=== PATIENT | female | born 2000 | race Caucasian/White ===

== ENCOUNTER 2025-08-22 14:01 | Emergency (ER) | payer BC, SELFPAY ==
--- OUTSIDE RECORDS SUMMARY | 2023-03-12 15:28 | XMS_ITS | Encounter Summary ---
Author Organization [facility] Address [address] [place] [address] Care Team Providers Care Die Filer Name Role Phone Dawson Natarajan MD Primary Care Provider + [phone] Encounter Details Date Type Department Care Team (Late st Contact Info) Description 03/12/2023 3:28 PM EDT Hospital Encounter [facility] [address] [place] [address] Codie Loredo PA [address] [place], [place] [id number] Social History Tobacco Use Types Packs/Day Years Used Date Smoking Tobacco: Never Smokeless Tobacco: Never Alcohol Use Standard Drinks/Week Comments Not Currently 0 (1 standard drink = 0.6 oz pur e alcohol) [facility] Utilities Answer Date Recorded In the past 12 months has [employer], gas, oil, or water [employer] threatened to shut off services in your home? No 01/07/2025 Social Connection and Isolat ion Panel [NHANES] Answer Date Recorded In a typical week, how many times do you talk on the phone with family, friends, or neighbors? More than three times a week 01/07/2025 How often do you get togethe r with friends or relatives? More than three times a week 01/07/2025 How often do you attend chur ch or gnosticist services? Never 01/07/2025 Do you belong to any clubs o r organizations such as religion groups, unions, fraternal or athletic groups, or school groups? No 01/07/2025 How often do you attend meet ings of the clubs or organizations you belong to? Never 01/07/2025 Are you , , di vorced, , never , or living with a partner? Never 01/07/2025 AUDIT-C Answer Date Recorded Q1: How often do you have a drink containing alc ohol? Monthly or less 01/06/2025 Q2: How many drinks containi ng alcohol do you have on a typical day when you are drinking? 1 or 2 01/06/2025 Q3: How often do you have si x or more drinks on one occasion? Never 01/06/2025 Overall Financial Resource Strain (CARDIA) Answe r Date Recorded How hard is it for you to pa y for the very basics like food, housing, medical care, and heating? Not hard at all 01/07/2025 Hunger Vital Sign Answer Date Recorded Within the past 12 months, y ou worried that your food would run out before you got the money to buy more. Never true 01/07/20 25 Within the past 12 months, t he food you bought just didn't last and you didn't have money to get more. Never true 01/07/2025 PRAPARE - Transportation Answer Date Re corded In the past 12 months, has l ack of transportation kept you from medical appointments or from getting medications? No 12/27 In the past 12 months, has l ack of transportation kept you from meetings, work, or from getting things needed for daily living? No 01/07/2025 Housing Stability Vital Sign Answer Patel e Recorded In the last 12 months, was t here a time when you were not able to pay the mortgage or rent on time? No 01/07/2025 In the past 12 months, how m any times have you moved where you were living? 0 01/07/2025 At any time in the past 12 m [facility], were you homeless or living in a halfway (including now)? No 01/07/2025 Comments No Sex and Gender Information Value Date Recorded Sex Assigned at Female 05/12/2023 3:50 PM EDT Legal Sex Female 3:02 PM EDT Gender Identity Female 05/12/2023 3:50 PM EDT Sexual Orientation Choose not to disclose 2022 9:40 AM EDT COVID-19 Exposure Response Date Recorded In the last 10 days, have kristen miller been in contact with someone who was confirmed or suspected to have Coronavirus/COVID-19? Unable to assess 05/12/2023 3:48 PM EDT documented as of this encounter Functional Status * Audit-C Score Answer Date of Assessment Author 1 01/06/2025 1:25 AM Giulia Meyer RN * Question Answer Date of Assessment Author Q1: How often do you have a drink containing alcohol? Monthly or less 01/06/2025 1:25 AM Giulia Meyer RN Q2: How many drinks containing alcohol do you have on a typical day when you are drinking? 1 or 2 01/06/2025 1:25 AM Judith Meyer RN Q3: How often do you have six or more drinks on one occasion? Never 01/06/2025 1:25 AM Giulia Meyer RN documented as of this encounter Plan of Treatment Not on file documented as of this encounter Procedures Procedure Name Priority Date/Time Associated Diagnosis Comments XR SHOULDER 2+ VIEWS-RIGHT STAT 03/12/2023 3:53 PM EDT Acute pain of right shoulder documented in this encounter Results * XR Shoulder 2+ views-Right (03/12/2023 3:53 PM EDT) Anatomical Region Laterality Modality Shoulder Right Computed Radiogr aphy 03/12/2023 3:56 PM EDT Impressions 03/12/2023 3:57 PM EDT 1. No fracture or dislocation. Narrative 03/12/2023 3:57 PM EDT XR SHOULDER 2+ VIEWS-RIGHT 03/12/2023 3:57 PM HISTORY: 22 yr old fell at work now right shoulder pain ? fx COMPARISON: None. TECHNIQUE: AP internal and external rotation and scapular Y radiographs of the right shoulder were obtained. FINDINGS: The skeletal structures are normally mineralized without an acute fracture or dislocation. The soft tissues are unremarkable. The visualized lung is clear. Procedure Note Donte Cordon MD - 03/12/2023 XR SHOULDER 2+ VIEWS-RIGHT 03/12/2023 3:57 PM HISTORY: 22 yr old fell at work now right shoulder pain ? fx COMPARISON: None. TECHNIQUE: AP internal and external rotation and scapular Y radiographsof the right shoulder were obtained. FINDINGS: The skeletal structures are normally mineralized without an acute fractureor dislocation. The soft tissues are unremarkable. The visualized lung isclear. IMPRESSION: 1. No fracture or dislocation. us Codie CABALLERO IMG DIAGNOSTIC IMAGING ORDERABLE S Final Result documented in this encounter Visit Diagnoses Not on filedocumented in this encounter Additional Health Concerns Infection Onset Date Last Indicated Resolved Time R/O Gastrointestinal Infection 04/11/2025 04/11/2025 04/11/2025 6:59 PM EDT R/O C. Difficile 04/11/2025 04/11/2025 04/12/2025 10:28 PM EDT documented as of this encounter Care Teams Die Filer Relationship Specialty Start [place] [address] [place] [id number] PCP - General Internal Medicine 04/12/22 documented as of this encounter
--- OUTSIDE RECORDS SUMMARY | 2023-03-12 15:28 | XMS_ITS | Encounter Summary ---
Author Organization [facility] Address [address] [place] [address] Care Team Providers Care Online Communications Specialist Name Role Phone Dawson Natarajan MD Primary Care Provider + [phone] Encounter Details Date Type Department Care Team (Late st Contact Info) Description 03/12/2023 3:28 PM EDT Hospital Encounter [facility] [address] [place] [address] Codie Loredo PA [address] [place], [place] [phone] Social History Tobacco Use Types Packs/Day Years Used Date Smoking Tobacco: Never Smokeless Tobacco: Never Alcohol Use Standard Drinks/Week Comments Not Currently 0 (1 standard drink = 0.6 oz pur e alcohol) [facility] Utilities Answer Date Recorded In the past 12 months has [employer], gas, oil, or water [employer] threatened to shut off services in your [...] often do you attend chur ch or uatsdin services? Never 01/07/2025 Do you belong to any clubs o r organizations such as judaism groups, unions, fraternal or athletic groups, or [...] any time in the past 12 m [facility], were you homeless or living in a snf (including now)? No 01/07/2025 Comments No Sex [...] Name Priority Date/Time Associated Diagnosis Comments XR FOOT 3+ VIEWS-LEFT STAT 03/12/2023 3:52 PM EDT Left foot pain documented in this encounter Results * XR Foot 3+ views-Left (03/12/2023 3:52 PM EDT) Anatomical Region Laterality Modality Foot Left Computed Radiogr aphy 03/12/2023 3:55 PM EDT Impressions 03/12/2023 3:56 PM EDT 1. No acute fracture or dislocation of the left foot. Narrative 03/12/2023 3:56 PM EDT XR FOOT 3+ VIEWS-LEFT 03/12/2023 3:55 PM HISTORY: s/p fall now having left fot pain COMPARISON(S): None. TECHNIQUE: AP, lateral, and oblique radiographs of the left foot were obtained. FINDINGS: There is normal mineralization without acute fracture. The alignment is anatomic without subluxation or dislocation. No joint space narrowing, erosions or osteophytes are present. There is no appreciable soft tissue swelling, subcutaneous emphysema or radio-opaque foreign object. There is small plantar calcaneal spur. Procedure Note Donte Cordon MD - 03/12/2023 XR FOOT 3+ VIEWS-LEFT 03/12/2023 3:55 PM HISTORY: s/p fall now having left fot pain COMPARISON(S): None. TECHNIQUE: AP, lateral, and oblique radiographs of the left foot wereobtained. FINDINGS: There is normal mineralization without acute fracture. The alignment isanatomic without subluxation or dislocation. No joint space narrowing,erosions or osteophytes are present. There is no appreciable soft tissueswelling, subcutaneous emphysema or radio-opaque foreign object. There is small plantar calcaneal spur. IMPRESSION: 1. No acute fracture or dislocation of the left foot. us Codie CABALLERO IMG DIAGNOSTIC IMAGING ORDERABLE S Final Result documented in this encounter Visit Diagnoses Not on filedocumented in this encounter Additional Health Concerns Infection Onset Date Last Indicated Resolved Time R/O Gastrointestinal Infection 04/11/2025 04/11/2025 04/11/2025 6:59 PM EDT R/O C. Difficile 04/11/2025 04/11/2025 04/12/2025 10:28 PM EDT documented as of this encounter Care Teams Online Communications Specialist Relationship Specialty Start Date End Date Dawson Natarajan MD [address] [place] [id number] PCP - General Internal Medicine 04/12/22 documented as of this encounter
--- OUTSIDE RECORDS SUMMARY | 2023-03-12 15:28 | XMS_ITS | Encounter Summary ---
Author Organization [facility] Address [address] [place] [address] Care Team Providers Care Quality Compliance Coordinator Name Role Phone Dawson Natarajan MD Primary Care Provider + [phone] Encounter Details Date Type Department Care Team (Late st Contact Info) Description 03/12/2023 3:28 PM EDT Hospital Encounter [facility] [address] [place] [address] Codie Loredo PA [address] [place], [place] [phone] Social History Tobacco Use Types Packs/Day Years Used Date Smoking Tobacco: Never Smokeless Tobacco: Never Alcohol Use Standard Drinks/Week Comments Not Currently 0 (1 standard drink = 0.6 oz pur e alcohol) [facility] Utilities Answer Date Recorded In the past 12 months has [employer], gas, oil, or water [employer] threatened to shut off services in your [...] often do you attend chur ch or mandaeism services? Never 01/07/2025 Do you belong to any clubs o r organizations such as baptist groups, unions, fraternal or athletic groups, or [...] any time in the past 12 m [facility], were you homeless or living in a assisted (including now)? No 01/07/2025 Comments No Sex [...] Name Priority Date/Time Associated Diagnosis Comments XR ANKLE 3+ VIEWS-LEFT STAT 03/12/2023 3:52 PM EDT Injury of left ankle, initial encounter documented in this encounter Results * XR Ankle 3+ views-Left (03/12/2023 3:52 PM EDT) Anatomical Region Laterality Modality Ankle Left Computed Radiogr aphy 03/12/2023 3:56 PM EDT Impressions 03/12/2023 3:56 PM EDT 1. No acute fracture or dislocation of the left ankle. Narrative 03/12/2023 3:56 PM EDT XR ANKLE 3+ VIEWS-LEFT 03/12/2023 3:56 PM HISTORY: 22 yr old fell over onto chair twisted foot and ankle ? fx COMPARISON(S): None. TECHNIQUE: AP, lateral, and oblique radiographs of the left ankle were obtained. FINDINGS: There is normal mineralization without acute fracture. The base of the fifth metatarsal is intact. The alignment is anatomic without subluxation or dislocation. The medial and lateral clear spaces are symmetric. No joint space narrowing, erosions or osteophytes are present. There is no appreciable soft tissue swelling, subcutaneous emphysema or radio-opaque foreign object. Small calcaneal spur. Procedure Note Donte Cordon MD - 03/12/2023 XR ANKLE 3+ VIEWS-LEFT 03/12/2023 3:56 PM HISTORY: 22 yr old fell over onto chair twisted foot and ankle ? fx COMPARISON(S): None. TECHNIQUE: AP, lateral, and oblique radiographs of the left ankle wereobtained. FINDINGS: There is normal mineralization without acute fracture. The base of thefifth metatarsal is intact. The alignment is anatomic without subluxationor dislocation. The medial and lateral clear spaces are symmetric. Nojoint space narrowing, erosions or osteophytes are present. There is no appreciable soft tissue swelling,subcutaneous emphysema or radio-opaque foreign object. Small calcanealspur. IMPRESSION: 1. No acute fracture or dislocation of the left ankle. us Codie CABALLERO IMG DIAGNOSTIC IMAGING ORDERABLE S Final Result documented in this encounter Visit Diagnoses Not on filedocumented in this encounter Additional Health Concerns Infection Onset Date Last Indicated Resolved Time R/O Gastrointestinal Infection 04/11/2025 04/11/2025 04/11/2025 6:59 PM EDT R/O C. Difficile 04/11/2025 04/11/2025 04/12/2025 10:28 PM EDT documented as of this encounter Care Teams Quality Compliance Coordinator Relationship Specialty Start Date End Date Dawson Natarajan MD [address] [place] [address] PCP - General Internal Medicine 04/12/22 documented as of this encounter
--- OUTSIDE RECORDS SUMMARY | 2023-05-12 16:28 | XMS_ITS | Encounter Summary ---
Author Organization [facility] Address [address] [place] [address] Care Team Providers Care Dump Grader Name Role Phone Dawson Natarajan MD Primary Care Provider + [phone] Encounter Details Date Type Department Care Team (Late st Contact Info) Description 05/12/2023 4:28 PM EDT Hospital Encounter [facility] [address] [place] [address] Social History Tobacco Use Types Packs/Day Years Used Date Smoking Tobacco: Never Smokeless Tobacco: Never Alcohol Use Standard Drinks/Week Comments Not Currently 0 (1 standard drink = 0.6 oz pur e alcohol) [facility] Utilities Answer Date Recorded In the past 12 months has [employer], gas, oil, or water company threatened to shut off services in your [...] often do you attend chur ch or bahai services? Never 01/07/2025 Do you belong to any clubs o r organizations such as mormonism groups, unions, fraternal or athletic groups, or [...] any time in the past 12 m [facility], were you homeless or living in a fdc (including now)? No 01/07/2025 Comments No Sex and Gender Information Value Date Recorded Sex Assigned at Female 05/12/2023 3:50 PM EDT Legal Sex Female 3:02 PM EDT Gender Identity Female 05/12/2023 3:50 PM EDT Sexual Orientation Choose not to disclose 2022 9:40 AM EDT COVID-19 Exposure Response Date Recorded In the last 10 days, have yo u been in contact with someone who was [...] Date/Time Associated Diagnosis Comments XR FOOT 3+ VIEWS-RIGHT STAT 05/12/2023 4:38 PM EDT Pain of toe of right foot documented in this encounter Results * XR Foot 3+ views-Right (05/12/2023 4:38 PM EDT) Anatomical Region Laterality Modality Foot Right Computed Radiogr aphy 05/12/2023 4:40 PM EDT Impressions 05/12/2023 4:40 PM EDT No acute osseous injury detected. Narrative 05/12/2023 4:40 PM EDT XR FOOT 3+ VIEWS-RIGHT: 05/12/2023 4:28 PM CLINICAL HISTORY: right toe pain, stubbed toe, partial nail avulsion. Pain of toe of right foot. FINDINGS: The osseous structures are intact. There is no evidence of fracture. No bony malalignment. Moderate calcaneal spurring. Mild soft tissue swelling dorsum of the foot. Procedure Note Yogesh Mosquera MD - 05/12/2023 XR FOOT 3+ VIEWS-RIGHT: 05/12/2023 4:28 PM CLINICAL HISTORY: right toe pain, stubbed toe, partial nail avulsion. Pain of toe of rightfoot. FINDINGS: The osseous structures are intact. There is no evidence of fracture. No bony malalignment. Moderate calcaneal spurring. Mild soft tissue swelling dorsum of the foot. IMPRESSION: No acute osseous injury detected. Noble Ricci FLAT OPTICAL ELEMENT MAKER IMG DIAGNOSTIC IMAGING [facility] [place] Final Result documented in this encounter Visit Diagnoses Not on filedocumented in this encounter Additional Health Concerns Infection Onset Date Last Indicated Resolved Time R/O Gastrointestinal Infection 04/11/2025 04/11/2025 04/11/2025 6:59 PM EDT R/O C. Difficile 04/11/2025 04/11/2025 04/12/2025 10:28 PM EDT documented as of this encounter Care Teams Dump Grader Relationship Specialty Start Date End Date Dawson Natarajan MD [address] [place] [id number] PCP - General Internal Medicine 04/12/22 documented as of this encounter
--- OUTSIDE RECORDS SUMMARY | 2024-03-08 15:34 | XMS_ITS | Encounter Summary ---
Author Organization [facility] Address [address] [place] [address] Care Team Providers Care Senior Oracle Applications Developer Name Role Phone Dawson Natarajan MD Primary Care Provider + [phone] Encounter Details Date Type Department Care Team (Latest Contact Info) Description 03/08/2024 3:34 PM EDT Hospital Encounter [facility] [address] [place] [phone] Beau Holloway MD [address] [place] [address] Acute right ankle pain Social History Tobacco Use Types Packs/Day Years Used Date Smoking Tobacco: Never Smokeless Tobacco: Never Alcohol Use Standard Drinks/Week Comments Not Currently 0 (1 standard drink = 0.6 oz pur e alcohol) [facility] Utilities Answer Date Recorded In the past 12 months has [employer], gas, oil, or water [employer] threatened to shut off services in your [...] often do you attend chur ch or druze services? Never 01/07/2025 Do you belong to any clubs o r organizations such as restorationism groups, unions, fraternal or athletic groups, or [...] any time in the past 12 m [facility], were you homeless or living in a alf (including now)? No 01/07/2025 Comments No Sex and Gender Information Value Date Recorded Sex Assigned at Female 05/12/2023 3:50 PM EDT Legal Sex Female 3:02 PM EDT Gender Identity Female 05/12/2023 3:50 PM EDT Sexual Orientation Choose not to disclose 10/02/ 2023 9:40 AM EDT documented as of this encounter Functional [...] Date/Time Associated Diagnosis Comments XR ANKLE 3+ VIEWS-RIGHT STAT 03/08/2024 3:41 PM EDT Acute right ankle pain documented in this encounter Results * XR Ankle 3+ views-Right (03/08/2024 3:41 PM EDT) Anatomical Region Laterality Modality Ankle Right Computed Radiogr aphy 03/08/2024 3:59 PM EDT Impressions 03/08/2024 3:59 PM EDT No acute findings. Narrative 03/08/2024 3:59 PM EDT PROCEDURE: XR ANKLE 3+ VIEWS-RIGHT INDICATION: inversion, h/o ankle surgery COMPARISON: None. TECHNIQUE: AP, lateral, and oblique views of the right ankle were obtained. FINDINGS: There is no evidence of bone destruction or fracture. The ankle mortise is not widened. There is no joint effusion. The visualized soft tissues are unremarkable. There is plantar calcaneal spurring. Procedure Note Edouard Cardona MD - 03/08/2024 PROCEDURE: XR ANKLE 3+ VIEWS-RIGHT INDICATION: inversion, h/o ankle surgery COMPARISON: None. TECHNIQUE: AP, lateral, and oblique views of the right ankle wereobtained. FINDINGS: There is no evidence of bone destruction or fracture. The ankle mortise isnot widened. There is no joint effusion. The visualized soft tissues areunremarkable. There is plantar calcaneal spurring. IMPRESSION: No acute findings. us Beau Holloway MD IMG DIAGNOSTIC IMAGING ORDERAB LES Final Result documented in this encounter Visit Diagnoses Diagnosis Acute right ankle pain documented in this encounter Additional Health Concerns Infection Onset Date Last Indicated Resolved Time R/O Gastrointestinal Infection 04/11/2025 04/11/2025 04/11/2025 6:59 PM EDT R/O C. Difficile 04/11/2025 04/11/2025 04/12/2025 10:28 PM EDT documented as of this encounter Care Teams Senior Oracle Applications Developer Relationship Specialty Start Date End Date Dawson Natarajan MD [address] [place] [id number] PCP - General Internal Medicine 04/12/22 documented as of this encounter
--- NOTE | ~2025-08-22 | XR_ITS ---
CLINICAL HISTORY: pain after fall down stairs Three views of the lumbar spine. COMPARISON: None provided. FINDINGS: Five [id number] lumbar type vertebral bodies. Mild rightward curvature of the lower lumbar spine. Vertebral body heights are maintained. No evidence of acute vertebral body injury. Vertebral disc space heights are maintained. Visualized portions of the bones of the pelvis appear intact. Pelvic phleboliths present. IMPRESSION: 1. No radiographic evidence of acute injury to the lumbar spine. 2. Mild rightward curvature of the lower lumbar spine. This document has been electronically signed by: Evans Navarrete MD on 08/22/2025 16:13:52
--- NOTE | ~2025-08-22 | XR_ITS ---
CLINICAL HISTORY: fall --- Additional Notes or Special Instructions: Bloodwork at 1758 Single view of the chest with right rib films. COMPARISON: None provided. FINDINGS: Normal heart and mediastinal contours. No consolidation. No pleural effusion or pneumothorax. No fracture identified. IMPRESSION: 1. No acute cardiopulmonary abnormality. 2. No rib fracture identified. This document has been electronically signed by: Evans Navarrete MD on 08/22/2025 19:23:26
--- NOTE | ~2025-08-22 | CT_ITS ---
CLINICAL HISTORY: fall with head strike, LOC CT head without contrast. COMPARISON: None provided. FINDINGS: The visualized paranasal sinuses are clear. The mastoid air cells are clear. No calvarial fracture. No evidence for mass or mass effect. No intracranial hemorrhage or abnormal extra-axial fluid collection. No evidence of hydrocephalus. The basilar cisterns are patent. Posterior fossa appears unremarkable. IMPRESSION: 1. No acute intracranial findings. This document has been electronically signed by: Evans Navarrete MD on 08/22/2025 16:30:40
--- NOTE | ~2025-08-22 | XR_ITS ---
CLINICAL HISTORY: pain after fall down stairs Four views of the thoracic spine. COMPARISON: None provided. FINDINGS: Normal vertebral body alignment. Vertebral body heights are maintained. No evidence of acute vertebral body injury. Vertebral disc space heights are maintained. Visualized portions of the lungs are unremarkable. IMPRESSION: 1. No radiographic evidence of acute injury to the thoracic spine. This document has been electronically signed by: Evans Navarrete MD on 08/22/2025 16:13:47
--- NOTE | ~2025-08-22 | CT_ITS ---
CLINICAL HISTORY: right sided pain after falling downstairs CT abdomen and pelvis with IV contrast. COMPARISON: None provided. FINDINGS: Small hiatal hernia. Suture material present along the greater curvature of the stomach. Liver is mildly enlarged with right lobe measuring 19.5 cm. Likely cholecystectomy. Normal spleen. Normal pancreas. Normal right adrenal gland. Left adrenal gland is not visualized. Status post left nephrectomy. No right-sided hydronephrosis. No right renal or ureteral calculus. Diminutive appendix. Mild colonic stool burden. No bowel obstruction. No evidence of diverticulitis. Multiple normal-sized mesenteric and retroperitoneal lymph nodes. Normal abdominal aorta. Normal appearance of the urinary bladder. No adnexal mass. No acute fracture or suspicious bone lesion. IMPRESSION: 1. No cause for patient's symptoms identified. No evidence of appendicitis, diverticulitis or bowel obstruction. 2. Small hiatal hernia. This document has been electronically signed by: Evans Navarrete MD on 08/22/2025 19:49:24
--- NOTE | ~2025-08-22 | CT_ITS ---
CLINICAL HISTORY: fall with head strike, neck pain CT cervical spine without contrast. COMPARISON: None provided. FINDINGS: Normal vertebral body alignment. Vertebral body heights are maintained. No significant degenerative changes. Skull base and intracranial structures appear normal. The visualized paravertebral soft tissues appear unremarkable. IMPRESSION: 1. No evidence of acute injury to the cervical spine. This document has been electronically signed by: Evans Navarrete MD on 08/22/2025 16:28:59
--- NOTE | ~2025-08-22 | XR_ITS ---
CLINICAL HISTORY: fall Three views of the right ankle. COMPARISON: None provided. FINDINGS: No ankle joint effusion. Plantar calcaneal spur. Ankle mortise appears symmetric on non-stressed views. Talar dome appears intact. Distal tibia and fibula appear intact. Visualized tarsal bones appear intact. IMPRESSION: 1. No radiographic evidence of acute injury to the right ankle. This document has been electronically signed by: Evans Navarrete MD on 08/22/2025 19:22:13
--- NOTE | ~2025-08-22 | XR_ITS ---
CLINICAL HISTORY: fall Three views of the right foot. COMPARISON: None provided. FINDINGS: No ankle joint effusion. Plantar calcaneal spur. Normal tarsometatarsal alignment. Tarsals, metatarsals and phalanges appear intact. IMPRESSION: 1. No radiographic evidence of acute injury to the right foot. This document has been electronically signed by: Evans Navarrete MD on 08/22/2025 19:22:05
[2025-08-22 14:07] VITALS: BP 145/70; PULSE 115; RESP 16; TEMP 36.4; O2SAT 100; BMI 32.9
--- NOTE | 2025-08-22 14:07 | ED.GENADULT ---
HPI - General Adult General Chief complaint: Fall Stated complaint: fell down stairs back inj Time Seen by Provider: 08/22/25 16:53 History of Present Illness ED Provider: Shar MOTT narrative: The patient is a 24-year-old female. She says that she is on norethindrone because of endometriosis. The patient says that she fell down some concrete steps today when she was leaving the mall. She says that she twisted her right ankle or her ankle went out and she then fell forward tumbling over the stairs and landing on the concrete at the base of the stairs. She says that she estimates she went down about 5 steps. She says that she hit her head and she says that she was unconscious for 30 seconds. She says that she was with a friend and that she went home to her friend's house. However at that point she has a lot of pain and she had some vomiting. She then came to the emergency room. She has a headache, neck pain, back pain, pain on the right side of her abdomen, and pain in the right foot and ankle. Related Data Allergies Allergy/AdvReac Type Severity Reaction Status Date / Time No Known Allergies Allergy Verified 08/22/25 14:08 Review of Systems Review of Systems: Yes all other systems are reviewed and are negative [facility] Social History Social History Advance Directives: No Advance Directives Information Provided: No Physical Exam ED Vital Signs: Vital Signs - 24 hr 08/22/25 14:07 08/22/25 19:33 08/22/25 20:11 Temperature 97.5 F 98.3 F 98.3 F Pulse Rate 115 H 89 89 Respiratory Rate 16 20 20 Blood Pressure 145/70 H 112/59 L 112/59 L Pulse Oximetry 100 100 100 Oxygen Delivery Method Room Air Room Air Room Air BMI result Body Mass Index 32.9 Const Other: The patient is awake and alert. She looks mildly uncomfortable but not acutely toxic. No obviously apparent specific injuries. HENMT Other: No obvious signs of trauma to the head or face. No raccoon eyes. No funes sign. Eyes Other: Pupils are round equal, conjunctivae are clear, extraocular movements intact General: appearance normal, both eyes and all related structures Neck Other: There is no external sign of neck injury. However the patient reports diffuse posterior C-spine tenderness. No step-off. Chest Other: The patient reports significant right-sided lower anterior chest wall tenderness and tenderness in the region of the anterior axillary line near the costal margin. No crepitus or subcutaneous emphysema. Resp Effort & Inspection: normal respiratory effort Auscultation: clear to auscultation bilaterally Cardio Rate: regular rate Rhythm: regular rhythm Heart sounds: S1 normal heart sound present and S2 normal heart sound present GI Other: There is right-sided abdominal tenderness particularly under the costal margin. Back/Spine/Pelvis Other: Diffuse upper and lower back tenderness. Skin Other: The patient has some scattered bruises of multiple ages on the extremities. Skin is intact. No focal soft tissue swelling. Neuro Other: GCS is 15. The patient has a normal mental status. Cranial nerves are intact. She seems to have intact strength and sensation in her extremities. Extrem Other: No gross deformity to the right ankle or foot but the patient reports diffuse tenderness. The feet are well-perfused. Course Course Course Narrative: This is a rapid medical exam performed by Cheryl Thayer NP: Additional HPI, ROS, PE not included below will be deferred to primary provider. Patient is a 24y/o F presenting with complaint of head and back pain after falling down 5 concrete steps 40 mins [employer]. Reports 30 seconds of LOC. Not anticoagulated. Nausea and vomiting. Denies chance of . States her right foot gave out causing her to fall. Plan: CT head and c-spine, x-rays Medications Administered Discontinued Medications Generic Name Dose Route Start Last Admin Trade Name Freq PRN Reason Stop Dose Admin Acetaminophen 975 mg 08/22/25 17:08 08/22/25 17:15 Acetaminophen 325 Mg Tablet PO 08/22/25 17:09 975 mg ONCE ONE Administration Sodium Chloride 1,000 mls @ 999 mls/hr 08/22/25 17:45 08/22/25 20:00 Ns IV 08/22/25 18:45 Infused .Q1H1M MILE Infusion Ibuprofen 400 mg 08/22/25 17:08 08/22/25 17:16 Ibuprofen 400 Mg Tablet PO 08/22/25 17:09 400 mg ONCE ONE Administration Iohexol 100 ml 08/22/25 19:13 08/22/25 19:14 Iohexol 350 Mg/Ml 100 Ml Infus..Btl IV 08/22/25 19:14 85 ml ONCE ONE Administration Ketorolac Tromethamine 15 mg 08/22/25 17:48 08/22/25 17:54 Ketorolac Tromethamine 15 Mg/Ml Vial IVPUSH 08/22/25 17:49 15 mg ONCE ONE Administration Morphine Sulfate 4 mg 08/22/25 18:43 08/22/25 18:51 Morphine Sulfate 4 Mg/Ml Cartridge IVPUSH 08/22/25 18:44 4 mg ONCE ONE Administration Protocol Ondansetron HCl 4 mg 08/22/25 17:09 08/22/25 17:16 Ondansetron Odt 4 Mg Tab.Rapdis TRANSLINGU 08/22/25 17:10 4 mg ONCE ONE Administration Medical Decision Making Medical Decision Making MDM Narrative: The patient is a 24-year-old female who reports falling down 5 concrete steps. She reports hitting her head. She reports a brief loss of consciousness. She is also complaining of right-sided torso pain and right foot and ankle pain and also back and neck pain. A head CT and cervical spine CT as well as x-rays of the right ribs and the thoracic and lumbar spines, and the right foot and ankle were ordered at triage. These all show no fractures. The patient has a lot of tenderness in the right abdomen. Therefore a CT scan of the abdomen and pelvis was done. The CT scan shows no signs of intra-abdominal injury. Also no lower rib fractures on the right. The patient is a 24-year-old female who reports injuries after falling down several steps. She has had an extensive workup that is negative for significant injuries. She was treated symptomatically while in the emergency department. A review of the prescription monitoring program indicates that she has received multiple prescriptions for different narcotics from multiple providers over the last several months. In this calendar year she has received a total of 15 prescriptions for various opioids including oxycodone, tramadol, and hydrocodone. I believe all these prescriptions have been written by different providers in small amounts. This pattern of prescriptions is often considered an indicator medication seeking behavior. The patient was advised that she does not seem to have any dangerous injuries. She will be advised to use ibuprofen and acetaminophen as needed for discomfort and should follow up with her PCP in [place], [place]. Lab Data Labs: Lab Results 08/22/25 Range/Units 17:20 Urine Color Yellow Urine Appearance Clear Urine pH 7.0 (5.0-9.0) Ur Specific [place] 1.020 (1.005-1.025) Urine Protein Trace (Neg-Trace) mg/dL Urine Glucose (UA) Negative (Negative) mg/dL Urine Ketones 40 (Negative) mg/dL Urine Blood Negative (Negative) Urine Nitrite Negative (Negative) Ur Leukocyte Esterase Small (1+) H (Negative) Urine RBC 0-2 (0-2) /HPF Urine WBC 11-20 H (0-5) /HPF Ur Squamous Epith Cells 0-2 (0-2) /HPF Urine Bacteria Trace (None Seen) Hyaline Casts 0-2 (0-2) /LPF Urine Test NEGATIVE (NEGATIVE) Discharge Plan Discharge Clinical Impression: Right sided abdominal pain, Head injury, Acute right ankle pain Patient Disposition: Home, Self-Care Additional Instructions: Your testing today does not reveal any signs of significant injury. The CAT scans of your head and your neck and your abdomen and pelvis show no fractures or other injuries. There was no sign of injuries on x-rays of your right ankle and foot and the right ribs. Also there was no sign of spinal fracture. Please plan on resting and taking it easy for the next couple of days. You may use [id number] acetaminophen and ibuprofen as needed for discomfort. Please follow up with your regular doctor in [facility]. Return to the emergency room if worse. Interventions: ED Discharge Assessment Last Done: 08/22/25 20:11 Discharge Date/Time: 08/22/25 20:15 Print Language: Georgian
--- OUTSIDE RECORDS SUMMARY | 2025-08-22 15:17 | XMS_ITS | Clinical Summary ---
Author Organization [facility] Address [address] [place] [id number] Care Team Providers Care Window And Door Installer Name Role Phone Dawson Natarajan MD Primary Care Provider [phone] Allergies No known active allergies Social History Tobacco Use Types Packs/Day Years Used Date Smoking Tobacco: Never Assessed Comments No Sex and Gender Information Value Date Recorded Sex Assigned at Not on file Legal Sex Female 10:51 AM EDT Gender Identity Not on file Sexual Orientation Not on file Last Filed Vital Signs Vital Sign Reading Time Taken Comments Blood Pressure 119/65 05/05/2025 1:40 PM EDT Pulse 96 05/05/2025 1:40 PM EDT Temperature 37.3 C (99.2 F) 05/05/2025 11:06 AM EDT Respiratory Rate 18 05/05/2025 1:40 PM EDT Oxygen Saturation 100% 05/05/2025 1:40 PM EDT Inhaled Oxygen Concentration - - Weight 101.3 kg (223 lb 5.2 oz) 025 11:06 AM EDT Height 170.2 cm (5' 7 ) 05/05/2025 11:0 6 AM EDT Body Mass Index 34.98 05/05/2025 11:06 AM EDT Plan of Treatment Scheduled Referrals Name Type Priority Associated Diagnoses Orde r Schedule Ambulatory referral to Urology @ Outpatient Referral Routine Dehydration Flank pain Urinary tract infection without hematuria, site unspecified Expected: 05/05/2025, Expires: 05/05/2026 Health Maintenance Due Date Last Done Comments Hepatitis C Screening 1998 Lipid Panel 1998 IPV Vaccines (4 of 4 - 4-dose series) 2002 11/21/1999, 04/08/1999, 02/04/1999 HPV Vaccines (1 - 3-dose series) 2013 Pneumococcal Vaccine: Peds (0 to 5 Yrs) and At-Risk Pts (6 to 49 Yrs) (1 of 2 - PCV) 2017 Pap Smear 2019 Annual Physical Exam 10/24/2024 10/24/2023, 10/23/2022, 10/17/2021, Additional history exists COVID-19 Vaccine (3 - 2024- season) 2025 04/02/2021, 03/12/2021 Influenza Vaccine (#1) 2025 , 11/14/2021, 01/20/2019 Tdap and Td Vaccines Adult 03/18/2035 03/18/2025 HIB Vaccines Completed 02/02/2000, 05/26, 04/08/1999, Additional history exists Hepatitis A Vaccines Aged Out No long er eligible based on patient's age to complete this topic Meningococcal Vaccine Aged Out No logan marisol eligible based on patient's age to complete this topic RSV <20 Months Aged Out No longer kaylee gible based on patient's age to complete this topic Insurance MEDICAID IN-STATE Member Subscriber Plan / Payer (Ef fective 2025-Present) Name:Merissa Kearns Relation to Subscriber:Self Name:Merissa Kearns Payer ID:[id number] Group ID:Not on file Type:Not on file Address: [address] Care Teams Window And Door Installer Relationship Specialty Start Date End Date Dawson Natarajan MD [address] [place] [id number] PCP - General 05/05/25
--- OUTSIDE RECORDS SUMMARY | 2025-08-22 15:17 | XMS_ITS | Encounter Summary ---
Author Organization [facility] Address [address] [place] [address] Care Team Providers Care Key Account Representative Name Role Phone Dawson Natarajan MD Primary Care Provider [phone] Encounter Details Date Type Department Care Team ([facility] st Contact Info) Description 05/05/2025 Procedure Pass [facility], Radiology (CT Scan) [address] [place] [id number] Social History Tobacco Use Types Packs/Day Years Used Date Smoking Tobacco: Never Assessed Comments No Sex and Gender Information Value Date Recorded Sex Assigned at Not on file Legal Sex Female 10:51 AM EDT Gender Identity Not on file Sexual Orientation Not on file documented as of this encounter Plan of Treatment Not on file documented as of this encounter Visit Diagnoses Not on filedocumented in this encounter Care Teams Key Account Representative Relationship Specialty Start Date End Date Dawson Natarajan MD [address] [place], [place] [phone] PCP - General 05/05/25 documented as of this encounter
--- OUTSIDE RECORDS SUMMARY | 2025-08-22 15:17 | XMS_ITS | Clinical Summary ---
Author Organization [facility] Address [address] [place] [address] Care Team Providers Care Prepress Stripper Name Role Phone Dawson Natarajan MD Primary Care Provider [phone] Allergies No known active allergies Medications Medication Sig Dispensed Refills Start Date End Date Status Multiple Vitamin (MULTI-VITAMIN PO) Take by mouth. 0 Ac tive BIOTIN PO Take by mouth. 0 Active methylPREDNISolone (Medrol) 4 MG tablet follow package directions 21 tablet 0 04/07/2024 Active naproxen (NAPROSYN) 500 MG tablet Take 1 tablet (500 mg total) by mouth 2 (two) times a day with meals. 30 tablet 0 04/07/2024 Active methocarbamol (ROBAXIN) 500 MG tablet Take 1 tablet (500 mg total) by mouth 4 (four) times a day. 30 tablet 0 04/07/2024 Active norethindrone (AYGESTIN) 5 MG tabletIndications:E ndometriosis of ovary TAKE 3 TABLETS (15 MG TOTAL) BY MOUTH DAILY. 270 tablet 1 05/19/2024 Active Active Problems Problem Noted Date Diagnosed Date Right sided abdominal pain 02/05/2024 Constipation 02/05/2024 Dehydration 02/05/2024 Bacterial vaginosis 08/27/2022 Abdominal pain 08/25/2022 UTI (urinary tract infection) 09/08/2021 Pyelonephritis 09/08/2021 Back pain 07/13/2018 Pneumonia due to infectious organism 07/12/2018 Endometriosis 07/12/2018 Family History Medical History Relation Name Comments Other Father pre cancerous c ells on pancreas Diabetes Maternal Grandmother Endometriosis Maternal Grandmother Other Maternal Grandmother ??? jamie ast cancer Diabetes Mother Other Mother per pt benign b reast cyst was found Prostate cancer Paternal Grandfather Testicular cancer Paternal Uncle Cervical cancer Neg Hx Colon cancer Neg Hx Endometrial cancer Neg Hx Ovarian cancer Neg Hx Uterine cancer Neg Hx Relation Name Status Comments Brother Alive Father Alive Maternal Grandfather Maternal Grandmother Mother Alive Paternal Grandfather Paternal Grandmother Paternal Uncle Social History Tobacco Use Types Packs/Day Years Used Date Smoking Tobacco: Never Smokeless Tobacco: Never Alcohol Use Standard Drinks/Week Comments Yes 0 (1 standard drink = 0.6 oz pur e alcohol) socially Sex and Gender Information Value Date Recorded Sex Assigned at Female 06/16/2019 10:07 AM EDT Gender Identity Female 06/16/2019 10:07 AM EDT Sexual Orientation Choose not to disclose 2018 10:07 AM EDT Job Start Date Occupation Industry Not on file Not on file Not on file Last Filed Vital Signs Vital Sign Reading Time Taken Comments Blood Pressure 135/73 04/07/2024 10:44 AM EDT Pulse 103 04/07/2024 10:44 AM EDT Temperature 37.2 C (99 F) 04/07/2024 10:44 AM EDT Respiratory Rate 18 04/07/2024 10:44 AM EDT Oxygen Saturation 99% 04/07/2024 10:44 AM EDT Inhaled Oxygen Concentration - - Weight 99.6 kg (219 lb 8 oz) 02/05/2024 5:46 AM EDT Height 170.2 cm (5' 7 ) 02/05/2024 5:46 AM EDT Body Mass Index 34.38 02/05/2024 5:46 AM EDT Plan of Treatment Health Maintenance Due Date Last Done Comments Pneumococcal Vaccine (1 of 2 - PCV) 2004 DTap / Tdap / Td (5 - Tdap) 2009 03/0 07/2000, 06/10/1999, 04/08/1999, Additional history exists Depression Screening 2010 Cervical Cancer Screening (Pap Smear) 2019 BMI Counseling 10/24/2024 10/24/2023, 09/27, 10/17/2021, Additional history exists Preventative Health Evaluation 10/24/2024 10/24/2023, 10/23/2022, 10/17/2021, Additional history exists COVID-19 Vaccine ( season) 2025 04/02/2021, 03/12/2021 Influenza Vaccine (#1) 2025 10/11/2023, 2018 Hepatitis B Vaccines Completed 09/16/1999, 1998, 1998 Hepatitis C Screening Completed 12/11/2022 RSV Ped < 20 months Aged Out No longe r eligible based on patient's age to complete this topic Advance Directives For more information, please contact: [phone] Documents on File Type Date Recorded Patient Squeegee Finisher Expl anation Advance Directive and Living Will 09/10/2021 11:58 AM questionnaire Advance Directive and Living Will 09/09/2021 5:52 PM Advance Directive and Living Will 07/15/2018 Advance Directive and Living Will 07/18/2017 8:10 AM Latest Code Status on File Code Status Date Activated Date Inactivated Comments Code A- Full Code 02/05/2024 4:16 AM 02/05/2024 11:38 PM This code status was ascertained in the following way: discussion with patient . Code Status History Code Status Date Activated Date Inactivated Comments Code A- Full Code 08/25/2022 5:26 PM 08/27/2022 9:43 PM This code status was ascertained in the following way: pt Code A- Full Code 09/08/2021 9:59 PM 09/10/2021 12:23 AM This code status was ascertained in the following way: discussion with patient . Code A- Full Code 07/11/2018 9:21 PM 07/14/2018 7:17 PM This code status was ascertained in the following way: discussion with patient . Care Teams Prepress Stripper Relationship Specialty Start Date End Date Dawson Natarajan MD [address] [facility] [address] [place] [address] PCP - General Career Technology Teacher 12/13/20
--- OUTSIDE RECORDS SUMMARY | 2025-08-22 15:17 | XMS_ITS | Encounter Summary ---
Author Organization [facility] Address [address] [place] [id number] Care Team Providers Care Store Management Trainee Name Role Phone Dawson Natarajan MD Primary Care Provider [phone] Encounter Details Date Type Department Care Team (Late st Contact Info) Description 12/25/2022 [facility], 4th Floor [place] [address] [place] [address] Devi Hebert MD [address] [place] [id number] Social History Tobacco Use Types Packs/Day Years Used Date Smoking Tobacco: Never Smokeless Tobacco: Never Alcohol Use Standard Drinks/Week Comments Not Currently 0 (1 standard drink = 0.6 oz pur e alcohol) PHQ-2 Answer Date Recorded PHQ-2 Total Score 0 12/12/2022 Housing Stability Answer Date Recorded Housing Stability I have a steady place to live 12/12/2022 Interpersonal Safety Answer Date Record ed Is there anyone in your life that is hurting or threatening you in anyway? Not on file 12/25/2022 Physical Indicators of Abuse No evidence of phys ical abuse 12/25/2022 Comments No Sex and Gender Information Value Date Recorded Sex Assigned at Not on file Legal Sex Female 8:29 AM EST Gender Identity Not on file Sexual Orientation Not on file COVID-19 Exposure Response Date Recorded In the last 10 days, have yo u been in contact with someone who was confirmed or suspected to have Coronavirus/COVID-19? No / Unsure 12/25/2022 11:57 AM EST documented as of this encounter Plan of Treatment Not on file documented as of this encounter Visit Diagnoses Not on filedocumented in this encounter Additional Health Concerns Assessment Noted Time PHQ-9 Depression Total Score: 0 12/12/19 10:00 PM EST documented as of this encounter Care Teams Store Management Trainee Relationship Specialty Start Date End Date Dawson Natarajan MD [address] [place] [phone] PCP - General Internal Medicine 12/22/22 documented as of this encounter
--- OUTSIDE RECORDS SUMMARY | 2025-08-22 15:17 | XMS_ITS | Clinical Summary ---
Author Organization [facility] Address [address] [place] [address] Care Team Providers Care Smelting Engineer Name Role Phone Dawson Natarajan MD Primary Care Provider [phone] Source Comments Please note that some or all of the patient's information could have additional privacy protections. State laws allow health care providers to render certain types of treatment to minors without parental consent. Please do not assume that this information can be shared solely by obtaining just the consent of the patient's parent/guardian. Please determine if all or part of the patient's care was rendered without parent/guardian involvement. And, if so, obtain the minor's consent prior to disclosure.[facility] Allergies No known active allergies Medications NORETH-ETHINYL ESTRADIOL/IRON (GENERESS FE ORAL) Take 15 mg by mouth daily Reported on 04/06/2017 Active norethindrone (AYGESTIN) 5 mg tablet 3 09/07/2015 Active clotrimazole-be tamethasone (LOTRISONE) cream Reported on 04/06/2017 0 12/09/2015 Active fluconazole (DIFLUCAN) 100 MG tablet Reported on 04/06/2017 0 12/09/2015 Active topIRAMATE (TOPAMAX) 50 MG tablet Take 50 mg by mouth 2 (two) times daily Active methocarbamoL (ROBAXIN) 500 MG tablet TAKE 2 TABLETS BY MOUTH AT BEDTIME AND TAKE 2 TABLETS BY MOUTH EVERY 6 HOURS DAYTIME NEEDED 05/26/2020 Active Active Problems Problem Noted Date Diagnosed Date Class 3 severe obesity due t o excess calories without serious comorbidity with body mass index (BMI) of 60.0 to 69.9 in adult 06/08/2020 Renal cell carcinoma 05/23/2013 Resolved Problems Problem Noted Date Diagnosed Date Resolved Date Instability of left ankle joint 2015 02/14/2016 Left knee pain 2015 02/14/2016 Rash 08/16/2015 02/14/2016 Episodic headache 08/16/2015 02/14/2016 Dysuria 08/16/2015 02/14/2016 Unstable ankle 02/25/2014 02/14/2016 Immunizations Immunization Administration Dates Next Due Influenza, Quad, Preservative Free 01/20/2019 Pfizer Sars-cov-2 (Purple Cap) Vaccination 04/02,03/12/2021 Family History Medical History Relation Name Comments Breast cancer Maternal Grandmother Diabetes Maternal Grandmother Diabetes type II Maternal Grandmother Diabetes type II Maternal Uncle Cancer Paternal Grandfather prostat e Diabetes type II Paternal Grandfather Prostate cancer Paternal Grandfather Cancer Paternal Uncle testicular Celiac disease Neg Hx Diabetes type I Neg Hx Heart attack before 60 yrs Neg Hx Hyperlipidemia Neg Hx Hypertension Neg Hx Stroke before 60 yrs Neg Hx Thyroid disease Neg Hx Relation Name Status Comments Brother Alive Father Alive Maternal Grandmother Maternal Uncle Mother Alive Paternal Grandfather Paternal Uncle Social History Tobacco Use Types Packs/Day Years Used Date Smoking Tobacco: Never Smokeless Tobacco: Never Alcohol Use Standard Drinks/Week Comments Not Asked 0 (1 standard drink = 0.6 oz pur e alcohol) Comments No Sex and Gender Information Value Date Recorded Sex Assigned at Not on file Legal Sex Female 2:16 AM EST Gender Identity Not on file Sexual Orientation Not on file Last Filed Vital Signs Vital Sign Reading Time Taken Comments Blood Pressure 110/80 09/08/2022 1:31 PM EDT man ual Pulse 104 09/08/2022 1:31 PM EDT Temperature 37.1 C (98.8 F) 09/08/2022 1:31 PM EDT Respiratory Rate 16 09/08/2022 1:31 PM EDT Oxygen Saturation 99% 09/08/2022 1:31 PM EDT Inhaled Oxygen Concentration - - Weight 159.8 kg (352 lb 4.7 oz) 09/08/2022 1:31 PM EDT Height 170.2 cm (5' 7 ) 09/08/2022 1:31 PM EDT Body Mass Index 55.18 09/08/2022 1:31 PM EDT Plan of Treatment Health Maintenance Due Date Last Done Comments DTaP/TDAP/TD VACCINES (1 - Tdap) 2005 ADOLESCENT HIV SCREENING 2011 COVID-19 Vaccine (3 season) 2025 04/02/2021, 03/12/2021 INFLUENZA (#1) 2025 01/20/2019 NIRSEVIMAB VACCINES UNDER 8 MONTHS Aged Out No longer eligible b ased on patient's age to complete this topic Insurance [address] [place] [address] [facility]/ [address] [place] [address] [facility]/[address] [address] Care Teams Smelting Engineer Relationship Specialty [place] [address] [place] [address] [address] [place] [phone] PCP - General 09/24/20
--- OUTSIDE RECORDS SUMMARY | 2025-08-22 15:17 | XMS_ITS | Data Portability ---
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 Plan of Treatment Reminders Order Date Submit Date Provider Last Modified By Organization Details Last Modified Time Details Appointments None recorded. Lab None recorded. Referral None recorded. Procedures None recorded. Surgeries None recorded. Imaging electrocard iogram 2021 022 cathleen In-Office Order, Internal Use Only DO Not Attach Compendium DO Not Attach Compendium, Do Not Delete/merge, [id number] 15:27:48 Medication Orders None recorded. Patient TargetsNo targets recorded. Patient InstructionsNo instructions recorded. Reason for Referral None Reported. Results Created Date Observation Date Name Description Value Unit Range Abnormal Flag Note LastModifiedBy Organization Detail LastModifiedTime 07/24/2006/22/2022 XR, chest No observ ation record ed. [email or web address] Not Available 07/24 13:15:20 07/26/20 elect rocar diogr am No observ ation record ed. cathleen In-Office Order Internal Use Only DO Not Attach Compendium DO Not Attach Compendium, Do Not Delete/merge, [id number] 07/26/2022 15:27:23 08/07/20 22 07/26/2022 elect rocar diogr am No observ ation record ed. jeanette In-Office Order Internal Use Only DO Not Attach Compendium DO Not Attach Compendium, Do Not Delete/merge, [id number] 08/07/2022 10:16:39 Result Notes None recorded. Medical Equipment None Reported. Allergies No known drug allergies Medications Name Sig Start Date Stop Date Status Note LastModified by Organization Details LastModified Time tizanidine 2 mg tablet TAKE 1 TABLET BY MOUTH EVERY 8 HOURS NEEDED 07/26 completed Not Available Not Available Not Available cefpodoxime 200 mg tablet TAKE 1 TABLET BY MOUTH TWICE A DAY 07/26 completed Not Available Not Available Not Available oxycodone-a cetaminophe n 5 mg-325 mg tablet TAKE 1 TABLET BY MOUTH EVERY 6 HOURS NEEDED 07/26 completed Not Available Not Available Not Available magnesium oxide 400 mg (241.3 mg magnesium) tablet TAKE 1 TABLET BY MOUTH TWICE A DAY 07/26 completed Not Available Not Available Not Available benzonatate 100 mg capsule TAKE 1-2 CAPSULES BY MOUTH EVERY 8 HOURS NEEDED FOR COUGH 07/26 completed Not Available Not Available Not Available norethindro ne acetate 5 mg tablet TAKE 3 TABLETS BY MOUTH EVERY DAY active Not Available Not Available No t Available methylpredn isolone 4 mg tablets in a dose pack TAKE 6 TABLETS ON DAY 1 DIRECTED ON PACKAGE AND DECREASE BY 1 TAB EACH DAY FOR A TOTAL OF 6 DAYS 07/26 completed Not Available Not Available Not Available ondansetron 4 mg disintegrat ing tablet TAKE 1 TABLET BY MOUTH EVERY 8 HOURS NEEDED FOR NAUSEA 07/26 completed Not Available Not Available Not Available doxycycline hyclate 100 mg tablet TAKE 1 TABLET EVERY 12 HOURS DAILY 07/26 completed Not Available Not Available Not Available dicyclomine 10 mg capsule TAKE 1 CAPSULE (10 MG TOTAL) BY MOUTH 4 (FOUR) TIMES A DAY BEFORE MEALS AND AT BEDTIME FOR 5 DAYS. 07/26 completed Not Available Not Available Not Available naproxen 500 mg tablet TAKE 1 TABLET BY MOUTH TWICE A DAY FOR 7 DAYS 07/26 completed Not Available Not Available Not Available topiramate 50 mg tablet TAKE 1 TABLET BY MOUTH EVERY NIGHT AT BEDTIME. active Not Available Not Available No t Available multivitami n daily active Not Available Not Available Not Available Myrbetriq 50 mg tablet,exte nded release PLEASE SEE ATTACHED FOR DETAILED DIRECTION S active Not Available Not Available No t Available Vitals Date Recorded Body height Body mass index (BMI) Body weight Heart rate Systolic And Diastolic Provider Name and Address Organization Details Last Updated DateTime 07/26/2022 170.18 cm 55.3 kg/m2 673508.1 1 g 78 /min 122/82 mm[Hg] [place] [facility] 15:13:14 Social History None recorded. Functional Status None recorded. Mental Status None recorded. Family History Nothing Reported. Medical History No medical history recorded. Gynecological HistoryNo gynecological history recorded. Obstetrics History GPAL:G 0 P 0 0 0 0 Immunizations Vaccine Type Date Status Note Provider Nam e and Address Organization Details Recorded Time influenza, unspecified formulation 11/14/2021 completed Flaquita Montalvo tim, [place] [facility] 07/26/2022 14:33:45 Past Encounters Encounter ID Performer Location Encounter Start Date Encounter Closed Date Diagnosis/Indication Diagnosis SNOMED-CT Code Diagnosis ICD10 Code Diagnosis IMO Codes Diagnosis Note [id number] Antonio Wood MD [facility] [address] [address] 07/26/2022 14:04:33 07/26/2022 15:24:18 Pre-surgery evaluation 012932591 Z01.818 Patient is low to intermedia te risk for cardiovasc ular complicati on with bariatric surgeryFun ctional capacity is good greater than 4 METSNo preoperati ve diagnostic testing indicated. Morbid obesity 982984762 E66.01 Schedule for weight loss surgery Vasovagal syncope 988972 005 R55 Renal cell carcinoma 702 630504 C64.9 Stable follow-up with PCP Health Concerns Section Related Observation LastModified by Organization Detai ls LastModified Time None Recorded Concern Status LastModified by Organization Details LastModified Time None Recorded Advance Directives Directive None Recorded Payers Insurance Date Sequence Insurance Name Policy Number Policy Villalobos Covered Member ID Villalobos Member ID Guarantor Name 07/27/2022 1 [id number] Merissa Kearns [id number] Merissa Kearns Notes Date Note Type Note Provider Name and Address Organization Details Recorded Time 07/26/2022 text/html ROS as noted in the HPI 21-year-old female no cardiac history consult for preoperative risk assessment prior to bariatric surgery. Patient denies chest pain shortness of breath palpitations her functional capacity is greater than 4 METS Past medical history:[facility] cell carcinoma [facility] in vasovagal syncopeObesity, chronic kidney diseaseGI disease Surgical history includes abdominal tumor kidney removed, ankle surgery was then teeth social history no smoking no alcohol Family history mother with diabetes alive Father prostate cancer COPD alive Antonio Wood MD [address] [place] [address], [phone], [place] [facility] 07/26/2022 15:28:03 OBGyn Episode No OBEpisode recorded.
--- OUTSIDE RECORDS SUMMARY | 2025-08-22 15:17 | XMS_ITS ---
Author Organization [facility] 's Address [address] [place] [address] Care Team Providers Care Legal Support Manager Name Role Phone Dawson Natarajan MD Primary Care Provider [phone] Active Problems Problem Noted Date Diagnosed Date Class 3 severe obesity due t o excess calories without serious comorbidity with body mass index (BMI) of 60.0 to 69.9 in adult 06/08/2020 Renal cell carcinoma 05/23/2013 Current Treatment and Therapy Plans No current plan information found. Past Treatment and Therapy Plans No past plan information found. Lifetime Dose Tracking * Chemical Lifetime Dose Automatic Entry Manual Entr y [id number] 74.3 mSv 74.3 mSv 0 mSv Total DLP 5,645 mGy/cm 5,645 mGy/cm 0 mGy/cm CTDIvol Max 107.9 mGy 107.9 mGy 0 mGy CTDIvol Min 107.9 mGy 107.9 mGy 0 mGy Resolved Problems Problem Noted Date Diagnosed Date Resolved Date Instability of left ankle joint 2015 02/14/2016 Left knee pain 2015 02/14/2016 Rash 08/16/2015 02/14/2016 Episodic headache 08/16/2015 02/14/2016 Dysuria 08/16/2015 02/14/2016 Unstable ankle 02/25/2014 02/14/2016
--- OUTSIDE RECORDS SUMMARY | 2025-08-22 15:18 | XMS_ITS | Clinical Summary ---
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 By: Vivek Scherer 08/04/2025 8:09:44 PM[EST] us Jasper Peters MD IMG CT PROCEDURES Final Result * ECG 12 lead (08/04/2025 6:55 PM EDT) Ventricular Rate ECG 71 BPM GEMUSE Atrial Rate 71 BPM GEMUSE P-R Interval 128 ms GEMUSE QRS Duration 66 ms GEMUSE Q-T Interval 332 ms GEMUSE QTc 360 ms GEMUSE P Wave Yeaddiss 37 degrees GEMUSE R Yeaddiss 37 degrees GEMUSE T Yeaddiss 5 degrees GEMUSE ECG Interpretation Sinus rhythm with marked sinus arrhythmia Otherwise normal ECG Confirmed by Antonio Florez ([id number]) on 08/05/2025 8:19:46 AM GEMUSE 08/04/2025 6:55 PM EDT 08/05/2025 8:19 AM EDT us Jasper Peters MD ECG ORDERABLES Final Result GEMUSE * XR Pelvis 1-2 Views (08/04/2025 6:52 PM EDT) Anatomical Region Laterality Modality Body, Pelvis Radiographic Rachel ging 08/04/2025 7:08 PM EDT Impressions 08/04/2025 7:09 PM EDT Impression: Unremarkable pelvis. Report reviewed and signed by : Dr. Sudarshan Landon MD on 08/04/2025 7:09 PM. Workstation Name - [id number] -------- FINAL REPORT -------- Dictated By: Sudarshan Landon Dictated Date: 08/04/2025 19:08 ET Assigned Physician: Sudarshan Landon Reviewed and Electronically Signed By: Sudarshan Landon Signed Date: 08/04/2025 19:09 ET Workstation ID: [id number] Transcribed By: Self Edit Transcribed Date: 08/04/2025 19:08 ET Narrative 08/04/2025 7:09 PM EDT Frontal view of the pelvis demonstrates no definite pelvic fractures. No destructive bony process is identified. No radiopaque foreign bodies are noted. The visualized portion of the bowel gas is unremarkable. The SI joints and pubic symphysis are intact. Procedure Note Sudarshan Landon MD - 08/04/2025 Frontal view of the pelvis demonstrates no definite pelvic fractures. Nodestructive bony process is identified. No radiopaque foreign bodies arenoted. The visualized portion of the bowel gas is unremarkable. The SIjoints and pubic symphysis are intact. IMPRESSION: Impression: Unremarkable pelvis. Report reviewed and signed by : Dr. Sudarshan Landon MD on 08/04/2025 7:09 PM.Workstation Name - [id number] -------- FINAL REPORT -------- Dictated By: Sudarshan Landon Dictated Date: 08/04/2025 19:08 ET Assigned Physician: Sudarshan Landon Reviewed and Electronically Signed By: Sudarshan Landon Signed Date: 08/04/2025 19:09 ET Workstation ID: [id number] Transcribed By: Self Edit Transcribed Date: 08/04/2025 19:08 ET Jasper Peters MD IMG XR PROCEDURES Final Result * XR Chest 1 View (08/04/2025 6:52 PM EDT) Anatomical Region Laterality Modality Body Radiographic Rachel ging 08/04/2025 7:07 PM EDT Impressions 08/04/2025 7:08 PM EDT Impression: Unremarkable chest. Report reviewed and signed by : Dr. Sudarshan Landon MD on 08/04/2025 7:08 PM. Workstation Name - [id number] -------- FINAL REPORT -------- Dictated By: Sudarshan Landon Dictated Date: 08/04/2025 19:07 ET Assigned Physician: Sudarshan Landon Reviewed and Electronically Signed By: Sudarshan Landon Signed Date: 08/04/2025 19:08 ET Workstation ID: [id number] Transcribed By: Self Edit Transcribed Date: 08/04/2025 19:07 ET Narrative 08/04/2025 7:08 PM EDT A single frontal view of the chest demonstrates the cardiac silhouette to be normal in size for this projection. The hilar and mediastinal contours are unremarkable. No infiltrates or effusions are identified. No pulmonary contusion. No pneumothorax. Procedure Note Sudarshan Landon MD - 08/04/2025 A single frontal view of the chest demonstrates the cardiac silhouette abelardo normal in size for this projection. The hilar and mediastinal contoursare unremarkable. No infiltrates or effusions are identified. No pulmonarycontusion. No pneumothorax. IMPRESSION: Impression: Unremarkable chest. Report reviewed and signed by : Dr. Sudarshan Landon MD on 08/04/2025 7:08 PM.Workstation Name - [id number] -------- FINAL REPORT -------- Dictated By: Sudarshan Landon Dictated Date: 08/04/2025 19:07 ET Assigned Physician: Sudarshan Landon Reviewed and Electronically Signed By: Sudarshan Landon Signed Date: 08/04/2025 19:08 ET Workstation ID: [id number] Transcribed By: Self Edit Transcribed Date: 08/04/2025 19:07 ET us Jasper Peters MD IMG XR PROCEDURES Final Result * XR Knee 3 Views Right (08/04/2025 6:51 PM EDT) Anatomical Region Laterality Modality Lower Extremities, Knee Right [facility] 08/05/2025 6:55 AM EDT Impressions 08/05/2025 6:55 AM EDT No acute fracture or joint effusion at the right knee. Report reviewed and signed by : Dr. Lilia Keane on 08/05/2025 6:55 AM. Workstation Name - [id number] -------- FINAL REPORT -------- Dictated By: Lilia Keane Dictated Date: 08/05/2025 06:55 ET Assigned Physician: Lilia Keane Reviewed and Electronically Signed By: Lilia Keane Signed Date: 08/05/2025 06:55 ET Workstation ID: [id number] Transcribed By: Self Edit Transcribed Date: 08/05/2025 06:55 ET Narrative 08/05/2025 6:55 AM EDT VIEWS: AP, lateral and tunnel views of the right knee were obtained. FINDINGS: Joint spaces are preserved. No significant productive bony change. No acute fracture or cortical destructive lesion. No joint effusion or findings for intra-articular body. No significant soft tissue swelling. No radiopaque foreign body or abnormal soft tissue calcification. Procedure Note Lilia Keane MD - 08/05/2025 VIEWS: AP, lateral and tunnel views of the right knee were obtained. FINDINGS: Joint spaces are preserved. No significant productive bonychange. No acute fracture or cortical destructive lesion. No jointeffusion or findings for intra-articular body. No significant soft tissueswelling. No radiopaque foreign body or abnormal soft tissuecalcification. IMPRESSION: No acute fracture or joint effusion at the right knee. Report reviewed and signed by : Dr. Lilia Keane on 08/05/2025 6:55 AM.Workstation Name - [id number] -------- FINAL REPORT -------- Dictated By: Lilia Keane Dictated Date: 08/05/2025 06:55 ET Assigned Physician: Lilia Keane Reviewed and Electronically Signed By: Lilia Keane Signed Date: 08/05/2025 06:55 ET Workstation ID: [id number] Transcribed By: Self Edit Transcribed Date: 08/05/2025 06:55 ET us Jaspre Peters MD IMG XR PROCEDURES Final Result * Lactate, with reflex (08/04/2025 6:30 PM EDT) Only the most recent of4 resultswithin the time period is included. LACTIC ACID 0.8 0.5 - 2.0 mmol/L LAB CHEMISTRY METHOD 08/04/2025 6:54 PM EDT [facility] Blood Venous blood specimen / Unknown Venipuncture / Unknown 08/04/2025 6:30 PM EDT 08/04/2025 6:34 PM EDT us Jasper Peters MD LAB BLOOD ORDERABLES Final Resul t Performing Organization Address City/[facility]/ZIP Co de Phone Number [facility] Reg. #: [id number] [place] [address], [place] [phone] * Troponin I high sensitivity (08/04/2025 6:30 PM EDT) Only the most recent of2 resultswithin the time period is included. [facility] High Sensitivity Troponin I <3 0 - 39 ng/L LAB CHEMISTRY METHOD 08/04/2025 7:04 PM EDT [facility] Blood Venous blood specimen / Unknown Venipuncture / Unknown 08/04/2025 6:30 PM EDT 08/04/2025 6:34 PM EDT us Jasper Peters MD LAB BLOOD ORDERABLES Final Resul t Performing Organization Address [facility] Co de Phone Number [facility] Reg. #: [id number] [address] [place] [address], [place] [phone] * (ABNORMAL) CBC auto differential (08/04/2025 6:30 PM EDT) Only the most recent of5 resultswithin the time period is included. WBC 4.3 4.0 - 10.5 K/[facility] LAB HEMETOLOGY METHOD 08/04/2025 6:37 PM EDT [facility] RBC 4.16(L) 4.20 - 5.40 M/[facility] LAB HEMETOLOGY METHOD 08/04/2025 6:37 PM EDT [facility] Hemoglobin 12.5 12.5 - 16.0 g/dL LAB HEMETOLOGY METHOD 08/04/2025 6:37 PM EDT [facility] Hematocrit 39.3 37.0 - 47.0 % LAB HEMETOLOGY METHOD 08/04/2025 6:37 PM EDT [facility] MCV 94.5 78.0 - 100.0 FL LAB HEMETOLOGY METHOD 08/04/2025 6:37 PM EDT [facility] MCH 30.0 27.0 - 31.0 pcg LAB HEMETOLOGY METHOD 08/04/2025 6:37 PM EDT [facility] MCHC 31.8(L) 32.0 - 36.0 g/dL LAB HEMETOLOGY METHOD 08/04/2025 6:37 PM EDT [facility] RDW 13.3 11.5 - 14.0 % LAB HEMETOLOGY METHOD 08/04/2025 6:37 PM EDT [facility] Platelets 301 150 - 450 K/mcL LAB HEMETOLOGY METHOD 08/04/2025 6:37 PM EDT [facility] MPV 9.4 8.3 - 11.8 FL LAB HEMETOLOGY METHOD 08/04/2025 6:37 PM EDT [facility] Neutrophils Relative 47.6 25.0 - 62.0 % LAB HEMETOLOGY METHOD 08/04/2025 6:37 PM EDT [facility] Basophils Relative 0.9 0.0 - 2.0 % LAB HEMETOLOGY METHOD 08/04/2025 6:37 PM EDT [facility] Eosinophils Relative 0.7 0.0 - 6.0 % LAB HEMETOLOGY METHOD 08/04/2025 6:37 PM EDT [facility] Lymphocytes Relative 40.6 20.0 - 48.0 % LAB HEMETOLOGY METHOD 08/04/2025 6:37 PM EDT [facility] Monocytes Relative 10.0 2.0 - 12.0 % LAB HEMETOLOGY METHOD 08/04/2025 6:37 PM EDT [facility] NRBC 0.0 0.0 - 1.0 % LAB HEMETOLOGY METHOD 08/04/2025 6:37 PM EDT [facility] Immature Granulocytes Relative 0.2 0.0 - 1.0 % LAB HEMETOLOGY METHOD 08/04/2025 6:37 PM EDT [facility] Immature Granulocytes Absolute 0.01 <0.10 K/mcL LAB HEMETOLOGY METHOD 08/04/2025 6:37 PM EDT [facility] Neutrophils Absolute 2.04 1.50 - 7.00 K/mcL LAB HEMETOLOGY METHOD 08/04/2025 6:37 PM EDT [facility] Basophils Absolute 0.04 0.00 - 0.20 K/mcL LAB HEMETOLOGY METHOD 08/04/2025 6:37 PM EDT [facility] Eosinophils Absolute 0.03 0.00 - 0.60 K/mcL LAB HEMETOLOGY METHOD 08/04/2025 6:37 PM EDT [facility] Lymphocytes Absolute 1.74 1.00 - 5.00 K/mcL LAB HEMETOLOGY METHOD 08/04/2025 6:37 PM EDT [facility] Monocytes Absolute 0.43 0.10 - 1.20 K/mcL LAB HEMETOLOGY METHOD 08/04/2025 6:37 PM EDT [facility] Blood Venous blood specimen / Unknown Venipuncture / Unknown 08/04/2025 6:30 PM EDT 08/04/2025 6:34 PM EDT us Jasper Peters MD LAB BLOOD ORDERABLES Final Resul t [facility] Reg. #: [id number] [place] [address], * Activated partial thromboplastin time (08/04/2025 6:30 PM EDT) aPTT 26.8 25.0 - 37.0 sec LAB COAGULATION METHOD 08/04/2025 6:52 PM EDT [facility] Blood Venous blood specimen / Unknown Venipuncture / Unknown 08/04/2025 6:30 PM EDT 08/04/2025 6:34 PM EDT us Jasper Peters MD LAB BLOOD ORDERABLES Final Resul t Performing Organization Address [facility] de Phone Number [facility] Reg. #: [id number] [place] [address], * Prothrombin time with INR (08/04/2025 6:30 PM EDT) Protime 10.6 10.5 - 13.3 sec LAB COAGULATION METHOD 08/04/2025 6:52 PM EDT [facility] INR 0.9 0.8 - 1.1 LAB COAGULATION METHOD 08/04/2025 6:52 PM EDT [facility] Blood Venous blood specimen / Unknown Venipuncture / Unknown 08/04/2025 6:30 PM EDT 08/04/2025 6:34 PM EDT Narrative [facility] - 08/04/2025 6:52 PM EDT Std. Therapy 2.0-3.0 INR High Dose Therapy 3.0-4.5 INR Ranges may vary depending on clinical indications and protocol. us Jasper Peters MD LAB BLOOD ORDERABLES Final Resul t Performing Organization Address [facility] Co de Phone Number [facility] [place] Reg. #: [id number] [place] [address], [place] [phone] * Type and screen (08/04/2025 6:30 PM EDT) Only the most recent of3 resultswithin the time period is included. ABO Group O 08/04/2025 7:14 PM EDT [facility] Rh Type Positive 08/04/2025 7:14 PM EDT [facility] Antibody Screen Negative 08/04/2025 7:14 PM EDT [facility] Blood Venous blood specimen / Unknown Venipuncture / Unknown 08/04/2025 6:30 PM EDT 08/04/2025 6:34 PM EDT Jasper Peters MD LAB BLOOD BANK TEST ORDERABLES F inal Result [facility] [address] [place] [address], [place] [phone] * HCG, quantitative (08/04/2025 6:30 PM EDT) Only the most recent of2 resultswithin the time period is included. hCG Quant <3 mIU/mL LAB CHEMISTRY METHOD 08/04/2025 7:04 PM EDT [facility] Blood Venous blood specimen / Unknown Venipuncture / Unknown 08/04/2025 6:30 PM EDT 08/04/2025 6:34 PM EDT Narrative [facility] - 08/04/2025 7:04 PM EDT Interpretive Data: Male: <2 mIU/mL Non- Female: <5 mIU/mL Postmenopausal Female: </= 10 mIU/mL Female: Approx. Gest. Age (wks) mIU/mL 0.2 to 1 5-50 1 to 2 50-500 2 to 3 100-5,000 3 to 4 500-10,000 4 to 5 1,000-50,000 5 to 6 10,000-100,000 6 to 8 15,000-200,000 8 to 12 10,000-100,000 Performed using [employer] Immunoassay methodology Jasper Peters MD LAB BLOOD ORDERABLES Final Resul t Performing Organization Address City/[facility]/ZIP Co de Phone Number [facility] Reg. #: [id number] [place] [address], * (ABNORMAL) Phosphorus (08/04/2025 6:30 PM EDT) Phosphorus 2.2(L) 2.4 - 5.1 mg/dL LAB CHEMISTRY METHOD 08/04/2025 6:53 PM EDT [facility] Blood Venous blood specimen / Unknown Venipuncture / Unknown 08/04/2025 6:30 PM EDT 08/04/2025 6:34 PM EDT Jasper Peters MD LAB BLOOD ORDERABLES Final Resul t Performing Organization Address [facility] Co de Phone Number [facility] Reg. #: [id number] [place] [address], * Magnesium (08/04/2025 6:30 PM EDT) Only the most recent of3 resultswithin the time period is included. Magnesium 2.0 1.6 - 2.6 mg/dL LAB CHEMISTRY METHOD 08/04/2025 6:53 PM EDT [facility] Blood Venous blood specimen / Unknown Venipuncture / Unknown 08/04/2025 6:30 PM EDT 08/04/2025 6:34 PM EDT Jasper Peters MD LAB BLOOD ORDERABLES Final Resul t Performing Organization Address City/[facility]/ZIP Co de Phone Number [facility] Reg. #: [id number] [place] [address], [place] [phone] * Lipase (08/04/2025 6:30 PM EDT) Only the most recent of5 resultswithin the time period is included. Lipase 37 12 - 53 unit/L LAB CHEMISTRY METHOD 08/04/2025 6:53 PM EDT [facility] Blood Venous blood specimen / Unknown Venipuncture / Unknown 08/04/2025 6:30 PM EDT 08/04/2025 6:34 PM EDT Jasper Peters MD LAB BLOOD ORDERABLES Final Resul t Performing Organization Address [facility] Co de Phone Number [facility] Reg. #: [id number] [place] [address], [place] [phone] * Creatine kinase (08/04/2025 6:30 PM EDT) Total CK 97 34 - 145 unit/L LAB CHEMISTRY METHOD 08/04/2025 6:53 PM EDT [facility] Blood Venous blood specimen / Unknown Venipuncture / Unknown 08/04/2025 6:30 PM EDT 08/04/2025 6:34 PM EDT us Jasper Peters MD LAB BLOOD ORDERABLES Final Resul t Performing Organization Address City/[facility]/ZIP Co de Phone Number [facility] Reg. #: [id number] [place] [address], [place] [phone] * Ethanol (08/04/2025 6:30 PM EDT) Only the most recent of2 resultswithin the time period is included. Ethanol Level <3 <3 mg/dL LAB CHEMISTRY METHOD 08/04/2025 6:53 PM EDT [facility] Blood Venous blood specimen / Unknown Venipuncture / Unknown 08/04/2025 6:30 PM EDT 08/04/2025 6:34 PM EDT Narrative [facility] - 08/04/2025 6:53 PM EDT Limit of detection (LOD): 3 mg/dL State of [place] legal limit of intoxication: 21 or older: 80 mg/dL <21 years old: 20 mg/dL us Jasper Peters MD LAB BLOOD ORDERABLES Final Resul t [facility] [place] Reg. #: [id number] [address] [place] [address], * (ABNORMAL) Comprehensive metabolic panel (08/04/2025 6:30 PM EDT) Only the most recent of5 resultswithin the time period is included. Sodium 141 136 - 145 mmol/L LAB CHEMISTRY METHOD 08/04/2025 6:53 PM EDT [facility] Potassium 3.8 3.5 - 5.1 mmol/L LAB CHEMISTRY METHOD 08/04/2025 6:53 PM EDT [facility] Chloride 107 98 - 107 mmol/L LAB CHEMISTRY METHOD 08/04/2025 6:53 PM EDT [facility] CO2 22 20 - 31 mmol/L LAB CHEMISTRY METHOD 08/04/2025 6:53 PM EDT [facility] Anion Gap 12 5 - 14 LAB CHEMISTRY METHOD 08/04/2025 6:53 PM EDT [facility] Glucose 84 70 - 199 mg/dL LAB CHEMISTRY METHOD 08/04/2025 6:53 PM EDT [facility] BUN 11 9 - 23 mg/dL LAB CHEMISTRY METHOD 08/04/2025 6:53 PM T [facility] Creatinine 1.01 0.55 - 1.02 mg/dL LAB CHEMISTRY METHOD 08/04/2025 6:53 PM EDT [facility] eGFR 79 >=60 mL/min/1. 73m2 LAB CHEMISTRY METHOD 08/04/2025 6:53 PM T [facility] Comment:Calculation based on the Chronic Kidney Disease Epidemiology Collaboration (CKD-EPI) equation refit without adjustment for race. BUN/Creatinine Ratio 10.9(L) 12.0 - 20.0 LAB CHEMISTRY METHOD 08/04/2025 6:53 PM [facility] Calcium 9.3 8.7 - 10.4 mg/dL LAB CHEMISTRY METHOD 08/04/2025 6:53 PM [facility] AST (SGOT) 34(H) <34 unit/L LAB CHEMISTRY METHOD 08/04/2025 6:53 PM [facility] ALT (SGPT) 33 10 - 49 unit/L LAB CHEMISTRY METHOD 08/04/2025 6:53 PM [facility] Alkaline Phosphatase 76 46 - 116 unit/L LAB CHEMISTRY METHOD 08/04/2025 6:53 PM [facility] Total Protein 7.9 5.7 - 8.2 g/dL LAB CHEMISTRY METHOD 08/04/2025 6:53 PM [facility] Globulin, Total 2.9 2.3 - 3.5 g/dL LAB CHEMISTRY METHOD 08/04/2025 6:53 PM [facility] A/G Ratio 1.7 1.0 - 1.7 LAB CHEMISTRY METHOD 08/04/2025 6:53 PM [facility] Total Bilirubin 1.0 0.2 - 1.1 mg/dL LAB CHEMISTRY METHOD 08/04/2025 6:53 PM EDT [facility] Albumin 5.0(H) 3.2 - 4.8 g/dL LAB CHEMISTRY METHOD 08/04/2025 6:53 PM EDT [facility] Blood Venous blood specimen / Unknown Venipuncture / Unknown 08/04/2025 6:30 PM EDT 08/04/2025 6:34 PM EDT us Jasper Peters MD LAB BLOOD ORDERABLES Final Resul t [facility] [place] Reg. #: [id number] [address] [place] [address], * CT Abdomen Pelvis w Contrast (07/31/2025 3:17 PM EDT) Only the most recent of4 resultswithin the time period is included. Anatomical Region Laterality Modality Body Computed Tomogra phy 07/31/2025 3:32 PM EDT Impressions 07/31/2025 3:35 PM EDT 1. Postsurgical changes from sleeve gastrectomy. No acute intra-abdominal inflammatory changes, free fluid, or bowel obstruction. 2. Status post left nephrectomy. Report reviewed and signed by : Dr. Earlene Duval MD on 07/31/2025 3:35 PM. Workstation Name - [id number] -------- FINAL REPORT -------- Dictated By: Earlene Duval Dictated Date: 07/31/2025 15:32 ET Assigned Physician: Earlene Duval Reviewed and Electronically Signed By: Earlene Duval Signed Date: 07/31/2025 15:35 ET Workstation ID: [id number] Transcribed By: Self Edit Transcribed Date: 07/31/2025 15:32 ET Narrative 07/31/2025 3:35 PM EDT PROCEDURE: CT ABDOMEN PELVIS W CONTRAST TECHNIQUE: Reformatted images were obtained by post processing in multiple planes. A patient individualized dose optimization technique was employed for this procedure. CONTRAST: Axial CT images of the abdomen and pelvis were performed utilizing 75 mL IOPAMIDOL 300 MG IODINE/ML (61 %) INTRAVENOUS SOLUTION Route: intravenous contrast. COMPARISON: Comparison is made with CT abdomen and pelvis from 07/25/2025. FINDINGS: ABDOMEN VISUALIZED THORAX: No nodules, infiltrates, or effusions. LIVER: Homogeneously enhancing without focal mass. SPLEEN: Normal size without contour abnormality. GB/BILIARY: Physiologically distended gallbladder. No biliary dilatation. PANCREAS: No mass or ductal dilatation. KIDNEYS/URETERS: Patient is status post left nephrectomy. The right kidney enhances homogeneously without nephrolithiasis, hydronephrosis, or renal mass. There is no perinephric fluid. ADRENALS: No evidence for adrenal mass. AORTA/VASCULATURE: Normal in course and caliber. RETROPERITONEUM: No significant lymphadenopathy. MESENTERY/PERITONEAL SPACE: No mesenteric adenopathy or ascites. STOMACH/BOWEL: Postsurgical changes from sleep gastrectomy. The bowel loops nondilated. There is no obstruction. There are no pericolonic inflammatory changes. ABDOMINAL WALL: Unremarkable. OSSEOUS: No fracture. PELVIS VISCERA: Anteverted uterus. Excreted contrast is noted within the urinary bladder. BLADDER: No focal or diffuse wall thickening. LYMPH NODES: No pelvic or inguinal lymphadenopathy. FLUID: None. Procedure Note Earlene Duval MD - 07/31/2025 PROCEDURE: CT ABDOMEN PELVIS W CONTRAST TECHNIQUE: Reformatted images were obtained by post processing inmultiple planes. A patient individualized dose optimization technique wasemployed for this procedure. CONTRAST: Axial CT images of the abdomen and pelvis were performedutilizing 75 mL IOPAMIDOL 300 MG IODINE/ML (61 %) INTRAVENOUS SOLUTIONRoute: intravenous contrast. COMPARISON: Comparison is made with CT abdomen and pelvis from07/25/2025. FINDINGS: ABDOMEN VISUALIZED THORAX: No nodules, infiltrates, or effusions. LIVER: Homogeneously enhancing without focal mass. SPLEEN: Normal size without contour abnormality. GB/BILIARY: Physiologically distended gallbladder. No biliarydilatation. PANCREAS: No mass or ductal dilatation. KIDNEYS/URETERS: Patient is status post left nephrectomy. The rightkidney enhances homogeneously without nephrolithiasis, hydronephrosis, orrenal mass. There is no perinephric fluid. ADRENALS: No evidence for adrenal mass. AORTA/VASCULATURE: Normal in course and caliber. RETROPERITONEUM: No significant lymphadenopathy. MESENTERY/PERITONEAL SPACE: No mesenteric adenopathy or ascites. STOMACH/BOWEL: Postsurgical changes from sleep gastrectomy. The bowelloops nondilated. There is no obstruction. There are no pericolonicinflammatory changes. ABDOMINAL WALL: Unremarkable. OSSEOUS: No fracture. PELVIS VISCERA: Anteverted uterus. Excreted contrast is noted within the urinarybladder. BLADDER: No focal or diffuse wall thickening. LYMPH NODES: No pelvic or inguinal lymphadenopathy. FLUID: None. IMPRESSION: 1. Postsurgical changes from sleeve gastrectomy. No acute intra- abdominalinflammatory changes, free fluid, or bowel obstruction. 2. Status post left nephrectomy. Report reviewed and signed by : Dr. Earlene Duval MD on 07/31/2025 3:35PM. Workstation Name - [id number] -------- FINAL REPORT -------- Dictated By: Earlene Duval Dictated Date: 07/31/2025 15:32 ET Assigned Physician: Earlene Duval Reviewed and Electronically Signed By: Earlene Duval Signed Date: 07/31/2025 15:35 ET Workstation ID: [id number] Transcribed By: Self Edit Transcribed Date: 07/31/2025 15:32 ET Derrek CABALLERO IMG CT PROCEDURES Final Res ult * CT Chest w Contrast (07/31/2025 3:17 PM EDT) Only the most recent of3 resultswithin the time period is included. Anatomical Region Laterality Modality Body Computed Tomogra phy 07/31/2025 3:28 PM EDT Impressions 07/31/2025 3:32 PM EDT 1. No evidence for intrathoracic traumatic injury. No fracture. 2. Small hiatal hernia. Postsurgical changes from sleeve gastrectomy. Report reviewed and signed by : Dr. Earlene Duval MD on 07/31/2025 3:32 PM. Workstation Name - [id number] -------- FINAL REPORT -------- Dictated By: Earlene Duval Dictated Date: 07/31/2025 15:28 ET Assigned Physician: Earlene Duval Reviewed and Electronically Signed By: Earlene Duval Signed Date: 07/31/2025 15:32 ET Workstation ID: [id number] Transcribed By: Self Edit Transcribed Date: 07/31/2025 15:28 ET Narrative 07/31/2025 3:32 PM EDT PROCEDURE: CT CHEST W CONTRAST TECHNIQUE: Reformatted images were obtained by post processing in multiple planes. A patient individualized dose optimization technique was employed for this procedure. CONTRAST: 75 mL IOPAMIDOL 300 MG IODINE/ML (61 %) INTRAVENOUS SOLUTION Route: intravenous contrast. COMPARISON: Correlation is made with CT chest from 07/10/2025. FINDINGS: AXILLA/SUPRACLAVICULAR: No significant axillary or supraclavicular lymphadenopathy. MEDIASTINUM ADENOPATHY: No significantly enlarged mediastinal lymph nodes. AIRWAY: The tracheobronchial tree is patent without airway narrowing. VASCULATURE: Mild atherosclerotic calcification of the thoracic aorta without aneurysmal dilatation. MASS: No mediastinal mass or fluid. CARDIAC: The heart is normal size. There is no pericardial effusion. No evidence of calcified coronary artery disease. SAIRA: No hilar lymphadenopathy. LUNGS: No focal infiltrates. PULMONARY NODULES: None. PLEURA: No effusions, calcification, or thickening. CHEST WALL: Unremarkable. LIMITED ABDOMEN: Small hiatal hernia. Postsurgical changes from sleeve gastrectomy. OSSEOUS: No fracture. Procedure Note Earlene Duval MD - 07/31/2025 PROCEDURE: CT CHEST W CONTRAST TECHNIQUE: Reformatted images were obtained by post processing in multipleplanes. A patient individualized dose optimization technique was employedfor this procedure. CONTRAST: 75 mL IOPAMIDOL 300 MG IODINE/ML (61 %) INTRAVENOUS SOLUTIONRoute: intravenous contrast. COMPARISON: Correlation is made with CT chest from 07/10/2025. FINDINGS: AXILLA/SUPRACLAVICULAR: No significant axillary or supraclavicularlymphadenopathy. MEDIASTINUM ADENOPATHY: No significantly enlarged mediastinal lymph nodes. AIRWAY: The tracheobronchial tree is patent without airway narrowing. VASCULATURE: Mild atherosclerotic calcification of the thoracic aortawithout aneurysmal dilatation. MASS: No mediastinal mass or fluid. CARDIAC: The heart is normal size. There is no pericardial effusion. Noevidence of calcified coronary artery disease. SAIRA: No hilar lymphadenopathy. LUNGS: No focal infiltrates. PULMONARY NODULES: None. PLEURA: No effusions, calcification, or thickening. CHEST WALL: Unremarkable. LIMITED ABDOMEN: Small hiatal hernia. Postsurgical changes from sleevegastrectomy. OSSEOUS: No fracture. IMPRESSION: 1. No evidence for intrathoracic traumatic injury. No fracture. 2. Small hiatal hernia. Postsurgical changes from sleeve gastrectomy. Report reviewed and signed by : Dr. Earlene Duval MD on 07/31/2025 3:32PM. Workstation Name - [id number] -------- FINAL REPORT -------- Dictated By: Earlene Duval Dictated Date: 07/31/2025 15:28 ET Assigned Physician: Earlene Duval Reviewed and Electronically Signed By: Earlene Duval Signed Date: 07/31/2025 15:32 ET Workstation ID: [id number] Transcribed By: Self Edit Transcribed Date: 07/31/2025 15:28 ET us Derrek CABALLERO IMG CT PROCEDURES Final Res ult * (ABNORMAL) Urinalysis with reflex microscopic and culture (07/31/2025 2:07 PM EDT) Only the most recent of4 resultswithin the time period is included. Color, Urine Yellow Yellow LAB URINALYSIS - AUTOMATED METHOD 07/31/2025 3:03 PM EDT [facility] Clarity, Urine Turbid(A) Clear LAB URINALYSIS - AUTOMATED METHOD 07/31/2025 3:03 PM EDT [facility] Specific Combes Urine 1.031(H) 1.005 - 1.030 LAB URINALYSIS - AUTOMATED METHOD 07/31/2025 3:03 PM T [facility] pH, Urine 7.0 5.0 - 8.0 pH LAB URINALYSIS - AUTOMATED METHOD 07/31/2025 3:03 PM T [facility] Leukocytes, Urine 250(A) Negative WBCs/mcL LAB URINALYSIS - AUTOMATED METHOD 07/31/2025 3:03 PM [facility] Nitrite, Urine Negative Negative LAB URINALYSIS - AUTOMATED METHOD 07/31/2025 3:03 PM [facility] Protein, Urine 30 Negative mg/dL LAB URINALYSIS - AUTOMATED METHOD 07/31/2025 3:03 PM [facility] Glucose, Urine 50(A) Normal mg/dL LAB URINALYSIS - AUTOMATED METHOD 07/31/2025 3:03 PM [facility] Ketones, Urine 20(A) Negative, <10 mg/dL LAB URINALYSIS - AUTOMATED METHOD 07/31/2025 3:03 PM [facility] Urobilinogen, Urine 3.0(A) Normal (<2.0) mg/dL LAB URINALYSIS - AUTOMATED METHOD 07/31/2025 3:03 PM [facility] Bilirubin, Urine Negative Negative mg/dL LAB URINALYSIS - AUTOMATED METHOD 07/31/2025 3:03 PM [facility] Blood, Urine 0.1(A) <=1.0 mg/dL LAB URINALYSIS - AUTOMATED METHOD 07/31/2025 3:03 PM [facility] Bacteria, Urine Trace(A) None /HPF LAB URINALYSIS - AUTOMATED METHOD 07/31/2025 3:03 PM [facility] Mucus, UA 2+(A) None /LPF LAB URINALYSIS - AUTOMATED METHOD 07/31/2025 3:03 PM [facility] RBC, Urine 5(H) 0 - 2 /HPF LAB URINALYSIS - AUTOMATED METHOD 07/31/2025 3:03 PM [facility] WBC, Urine 6(H) 0 - 5 /HPF LAB URINALYSIS - AUTOMATED METHOD 07/31/2025 3:03 PM [facility] Squamous Epithelial, Urine 3 0 - 5 /HPF LAB URINALYSIS - AUTOMATED METHOD 07/31/2025 3:03 PM EDT [facility] Transitional Epithelial, Urine <1 <=2 /HPF LAB URINALYSIS - AUTOMATED METHOD 07/31/2025 3:03 PM EDT [facility] Hyaline Casts, Urine 1 <5 /LPF LAB URINALYSIS - AUTOMATED METHOD 07/31/2025 3:03 PM EDT [facility] Urine Urine specimen obtained by clean catch procedure / Unknown Non-blood Collection / Unknown 07/31/2025 2:07 PM EDT 07/31/2025 2:11 PM EDT us Derrek P Prevelige PA LAB URINE ORDERABLES Final Result Performing Organization Address [facility]/ZIP Co de Phone Number [facility] Reg. #: [id number] [address] [place] [address], [place] [phone] * Ortiz urine culture tube (07/31/2025 2:07 PM EDT) Only the most recent of4 resultswithin the time period is included. Extra Tube Hold for add-ons. 07/31/2025 4:01 PM EDT [facility] Comment:Auto resulted. Urine Urine specimen obtained by clean catch procedure / Unknown Non-blood Collection / Unknown 07/31/2025 2:07 PM EDT 07/31/2025 2:11 PM EDT us Derrek P Prevelige PA LAB URINE ORDERABLES Final Result [facility] Reg. #: [id number] [address] [place] [address], [place] [phone] * Culture urine (07/31/2025 2:07 PM EDT) Only the most recent of4 resultswithin the time period is included. Culture, Urine Multiple bacterial morphotypes present consistent with either contamination or urogenital geneva. Suggest repeat specimen, if clinically indicated. 08/01/2025 10:54 AM EDT [facility] Urine Urine specimen obtained by clean catch procedure / Unknown Non-blood Collection / Unknown 07/31/2025 2:07 PM EDT 07/31/2025 3:03 PM EDT Derrek CABALLERO LAB MICROBIOLOGY - GENERAL ORDERABLES Final Result [facility] [place] Reg. #: [id number] [address] [place] [address], * POC , urine manually resulted (07/24/2025 9:11 PM EDT) [facility] HCG, Ur POC Negative Negative POC hCG Int QC Pass? Yes Yes EXPIRATION DATE POC 12/17/2026 LOT NUMBER POC [id number] Urine Urine specimen obtained by clean catch procedure / Unknown 07/24/2025 9:11 PM EDT Angelic Trent NP POINT OF CARE TEST ENTER/EDIT OR DERABLES Final Result * (ABNORMAL) Hepatic function panel (07/24/2025 9:10 PM EDT) [facility] ALT (SGPT) 36 10 - 49 unit/L LAB CHEMISTRY METHOD 07/24/2025 9:34 PM EDT [facility] AST (SGOT) 38(H) <34 unit/L LAB CHEMISTRY METHOD 07/24/2025 9:34 PM EDT [facility] Alkaline Phosphatase 72 46 - 116 unit/L LAB CHEMISTRY METHOD 07/24/2025 9:34 PM EDT [facility] Bilirubin, Direct 0.4(H) 0.0 - 0.3 mg/dL LAB CHEMISTRY METHOD 07/24/2025 9:34 PM EDT [facility] Total Bilirubin 0.9 0.2 - 1.1 mg/dL LAB CHEMISTRY METHOD 07/24/2025 9:34 PM EDT [facility] Total Protein 8.2 5.7 - 8.2 g/dL LAB CHEMISTRY METHOD 07/24/2025 9:34 PM EDT [facility] Albumin 5.2(H) 3.2 - 4.8 g/dL LAB CHEMISTRY METHOD 07/24/2025 9:34 PM EDT [facility] Globulin, Total 3.0 2.3 - 3.5 g/dL LAB CHEMISTRY METHOD 07/24/2025 9:34 PM EDT [facility] A/G Ratio 1.7 1.0 - 1.7 LAB CHEMISTRY METHOD 07/24/2025 9:34 PM EDT [facility] Blood Venous blood specimen / Unknown Venipuncture / Unknown 07/24/2025 9:10 PM EDT 07/24/2025 9:14 PM EDT us Angelic Trent LEGAL NURSE CONSULTANT LAB BLOOD ORDERABLES Final Resul t [facility] [address] [place] [address], * (ABNORMAL) Basic metabolic panel (07/24/2025 9:10 PM EDT) Sodium 140 136 - 145 mmol/L LAB CHEMISTRY METHOD 07/24/2025 9:34 PM EDT [facility] Potassium 4.2 3.5 - 5.1 mmol/L LAB CHEMISTRY METHOD 07/24/2025 9:34 PM EDT [facility] Chloride 104 98 - 107 mmol/L LAB CHEMISTRY METHOD 07/24/2025 9:34 PM EDT [facility] CO2 23 20 - 31 mmol/L LAB CHEMISTRY METHOD 07/24/2025 9:34 PM EDT [facility] Anion Gap 13 5 - 14 LAB CHEMISTRY METHOD 07/24/2025 9:34 PM EDT [facility] Glucose 60(L) 70 - 199 mg/dL LAB CHEMISTRY METHOD 07/24/2025 9:34 PM EDT [facility] BUN 8(L) 9 - 23 mg/dL LAB CHEMISTRY METHOD 07/24/2025 9:34 PM EDT [facility] Creatinine 1.01 0.55 - 1.02 mg/dL LAB CHEMISTRY METHOD 07/24/2025 9:34 PM EDT [facility] eGFR 79 >=60 mL/min/1. 73m2 LAB CHEMISTRY METHOD 07/24/2025 9:34 PM EDT [facility] Comment:Calculation based on the Chronic Kidney Disease Epidemiology Collaboration (CKD-EPI) equation refit without adjustment for race. BUN/Creatinine Ratio 7.9(L) 12.0 - 20.0 LAB CHEMISTRY METHOD 07/24/2025 9:34 PM EDT [facility] Calcium 9.6 8.7 - 10.4 mg/dL LAB CHEMISTRY METHOD 07/24/2025 9:34 PM EDT [facility] Blood Venous blood specimen / Unknown Venipuncture / Unknown 07/24/2025 9:10 PM EDT 07/24/2025 9:14 PM EDT us Angelic Trent NP LAB BLOOD ORDERABLES Final Resul t [facility] [address] [place] [address], * CBC (07/10/2025 7:56 PM EDT) WBC 4.4 4.0 - 10.5 K/mcL LAB HEMETOLOGY METHOD 07/10/2025 8:08 PM EDT [facility] RBC 4.23 4.20 - 5.40 M/mcL LAB HEMETOLOGY METHOD 07/10/2025 8:08 PM EDT [facility] Hemoglobin 12.9 12.5 - 16.0 g/dL LAB HEMETOLOGY METHOD 07/10/2025 8:08 PM EDT [facility] Hematocrit 40.3 37.0 - 47.0 % LAB HEMETOLOGY METHOD 07/10/2025 8:08 PM EDT [facility] MCV 95.3 78.0 - 100.0 FL LAB HEMETOLOGY METHOD 07/10/2025 8:08 PM EDT [facility] MCH 30.5 27.0 - 31.0 pcg LAB HEMETOLOGY METHOD 07/10/2025 8:08 PM EDT [facility] MCHC 32.0 32.0 - 36.0 g/dL LAB HEMETOLOGY METHOD 07/10/2025 8:08 PM EDT [facility] RDW 13.2 11.5 - 14.0 % LAB HEMETOLOGY METHOD 07/10/2025 8:08 PM EDT [facility] Platelets 309 150 - 450 K/mcL LAB HEMETOLOGY METHOD 07/10/2025 8:08 PM EDT [facility] MPV 9.0 8.3 - 11.8 FL LAB HEMETOLOGY METHOD 07/10/2025 8:08 PM EDT [facility] Blood Venous blood specimen / Unknown Venipuncture / Unknown 07/10/2025 7:56 PM EDT 07/10/2025 7:58 PM EDT us Neil Nj DO LAB BLOOD ORDERABLES Final Re sult [facility] [address] [place] [address], [place] [phone] * US Retroperitoneal Complete (06/30/2025 6:25 PM EDT) Anatomical Region Laterality Modality Body Ultrasound 06/30/2025 6:39 PM EDT Impressions 06/30/2025 6:41 PM EDT Status-post left nephrectomy. No evidence of right-sided hydronephrosis. Report reviewed and signed by : Dr. Soren Elizabeth on 06/30/2025 6:41 PM. Workstation Name - [id number] -------- FINAL REPORT -------- Dictated By: Soren Elizabeth Dictated Date: 06/30/2025 18:39 ET Assigned Physician: Soren Elizabeth Reviewed and Electronically Signed By: Soren Elizabeth Signed Date: 06/30/2025 18:41 ET Workstation ID: [id number] Transcribed By: Self Edit Transcribed Date: 06/30/2025 18:39 ET Narrative 06/30/2025 6:41 PM EDT PROCEDURE: US RETROPERITONEAL COMPLETE COMPARISON: CT abdomen/pelvis dated 06/27/2005 FINDINGS: RIGHT KIDNEY: Measures approximately 13.5 cm in length. No hydronephrosis. No echogenic calculi identified. LEFT KIDNEY: Status-post left nephrectomy. URINARY BLADDER: Right ureteral jet was seen. Procedure Note Soren Elizabeth MD - 06/30/2025 PROCEDURE: US RETROPERITONEAL COMPLETE COMPARISON: CT abdomen/pelvis dated 06/27/2005 FINDINGS: RIGHT KIDNEY: Measures approximately 13.5 cm in length. Nohydronephrosis. No echogenic calculi identified. LEFT KIDNEY: Status-post left nephrectomy. URINARY BLADDER: Right ureteral jet was seen. IMPRESSION: Status-post left nephrectomy. No evidence of right-sidedhydronephrosis. Report reviewed and signed by : Dr. Soren Elizabeth on 06/30/2025 6:41 PM.Workstation Name - [id number] -------- FINAL REPORT -------- Dictated By: Soren Elizabeth Dictated Date: 06/30/2025 18:39 ET Assigned Physician: Soren Elizabeth Reviewed and Electronically Signed By: Soren Elizabeth Signed Date: 06/30/2025 18:41 ET Workstation ID: [id number] Transcribed By: Self Edit Transcribed Date: 06/30/2025 18:39 ET us Awa Leong LEGAL NURSE CONSULTANT IMG US PROCEDURES Final Resul t * Blood Culture, Peripheral #2 (06/30/2025 5:47 PM EDT) Only the most recent of2 resultswithin the time period is included. Culture, Blood No growth at 5 days LAB MICROBIOLOGY METHOD 07/05/2025 6:01 PM EDT [facility] Blood Venous blood specimen / Unknown Venipuncture / Unknown 06/30/2025 5:47 PM EDT 06/30/2025 5:54 PM EDT us Awa Leong NP LAB MICROBIOLOGY - GENERAL OR DERABLES Final Result [facility] [address] [place] [id number], * (ABNORMAL) Urinalysis with reflex microscopic (06/27/2025 1:56 PM EDT) Color, Urine Yellow Yellow LAB URINALYSIS - AUTOMATED METHOD 06/27/2025 2:04 PM EDT [facility] Clarity, Urine Turbid(A) Clear LAB URINALYSIS - AUTOMATED METHOD 06/27/2025 2:04 PM EDT [facility] Specific Combes Urine 1.015 1.005 - 1.030 LAB URINALYSIS - AUTOMATED METHOD 06/27/2025 2:04 PM EDT [facility] pH, Urine 7.5 5.0 - 8.0 pH LAB URINALYSIS - AUTOMATED METHOD 06/27/2025 2:04 PM EDT [facility] Leukocytes, Urine 250(A) Negative WBCs/mcL LAB URINALYSIS - AUTOMATED METHOD 06/27/2025 2:04 PM EDT [facility] Nitrite, Urine Negative Negative LAB URINALYSIS - AUTOMATED METHOD 06/27/2025 2:04 PM [facility] Protein, Urine Negative Negative mg/dL LAB URINALYSIS - AUTOMATED METHOD 06/27/2025 2:04 PM [facility] Glucose, Urine Normal Normal mg/dL LAB URINALYSIS - AUTOMATED METHOD 06/27/2025 2:04 PM [facility] Ketones, Urine 10(A) Negative, <10 mg/dL LAB URINALYSIS - AUTOMATED METHOD 06/27/2025 2:04 PM [facility] Urobilinogen, Urine Normal Normal (<2.0) mg/dL LAB URINALYSIS - AUTOMATED METHOD 06/27/2025 2:04 PM [facility] Bilirubin, Urine Negative Negative mg/dL LAB URINALYSIS - AUTOMATED METHOD 06/27/2025 2:04 PM [facility] Blood, Urine Negative <=1.0 mg/dL LAB URINALYSIS - AUTOMATED METHOD 06/27/2025 2:04 PM [facility] Bacteria, Urine 1+(A) None /HPF LAB URINALYSIS - AUTOMATED METHOD 06/27/2025 2:04 PM [facility] Mucus, UA Trace None /LPF LAB URINALYSIS - AUTOMATED METHOD 06/27/2025 2:04 PM [facility] RBC, Urine 3(H) 0 - 2 /HPF LAB URINALYSIS - AUTOMATED METHOD 06/27/2025 2:04 PM [facility] WBC, Urine 16(H) 0 - 5 /HPF LAB URINALYSIS - AUTOMATED METHOD 06/27/2025 2:04 PM [facility] Squamous Epithelial, Urine 1 0 - 5 /HPF LAB URINALYSIS - AUTOMATED METHOD 06/27/2025 2:04 PM [facility] Urine Urine specimen obtained by clean catch procedure / Unknown Non-blood Collection / Unknown 06/27/2025 1:56 PM EDT 06/27/2025 1:59 PM EDT Didier Torey Dieter DO LAB URINE ORDERABLES Final R esult [facility] [address] [place] [address], from Last 3 Months Insurance MEDICAID - [place] [facility] Advance Directives Documents on File Type Date Recorded Patient Health Education Assistant Expl anation Health Care Decision (hx) 09/10/2021 YUDELKA ACOSTA DIRECTIVE Care Teams Development Geologist Relationship Specialty Start Date End Date Dawson Natarajan MD PCP - General Chip Drier 12/13/20
--- OUTSIDE RECORDS SUMMARY | 2025-08-22 15:18 | XMS_ITS | Encounter Summary ---
Author Organization [facility] Address [address] [place] [address] Care Team Providers Care Transport Analyst Name Role Phone Dawson Natarajan MD Primary Care Provider [phone] Encounter Details Date Type Department Care Team (Late st Contact Info) Description 10/20/2024 Scanned Document [address] [place] [phone] Provider, Generic Social History Tobacco Use Types Packs/Day Years [...] not to disclose 2022 9:40 AM EDT documented as of this encounter Plan of Treatment Not on file documented as of this encounter Visit Diagnoses Not on filedocumented in this encounter Additional Health Concerns Infection Onset Date Last Indicated Resolved Time R/O Gastrointestinal Infection 04/11/2025 04/11/2025 04/11/2025 6:59 PM EDT R/O C. Difficile 04/11/2025 04/11/2025 04/12/2025 10:28 PM EDT documented as of this encounter Care Teams Transport Analyst Relationship Specialty Start Date End Date Dawson Natarajan MD [address] [place] [phone] PCP - General Internal Medicine 04/12/22 documented as of this encounter
--- OUTSIDE RECORDS SUMMARY | 2025-08-22 15:18 | XMS_ITS | Encounter Summary ---
Author Organization [facility] Address [address] [place] [address] Care Team Providers Care Metal Fabricator Name Role Phone Dawson Natarajan MD Primary Care Provider [phone] Encounter Details Date Type Department Care Team (Late st Contact Info) Description 11/25/2024 Scanned Document [address] [place] [phone] Provider, Generic Social History Tobacco Use [...] documented as of this encounter Care Teams Metal Fabricator Relationship Specialty Start Date End Date Dawson Natarajan MD [address] [place] [phone] PCP - General Internal Medicine 04/12/22 documented as of this encounter
--- OUTSIDE RECORDS SUMMARY | 2025-08-22 15:18 | XMS_ITS | Encounter Summary ---
Author Organization [facility] Address [address] [place] [address] Care Team Providers Care Pecan Sheller Name Role Phone Dawson Natarajan MD Primary Care Provider [phone] Encounter Details Date Type Department Care Team (Late st Contact Info) Description 10/20/2024 Scanned Document [address] [place] [phone] Provider, Generic Social History Tobacco Use [...] documented as of this encounter Care Teams Pecan Sheller Relationship Specialty Start Date End Date Dawson Natarajan MD [address] [place] [phone] PCP - General Internal Medicine 04/12/22 documented as of this encounter
--- OUTSIDE RECORDS SUMMARY | 2025-08-22 15:18 | XMS_ITS | Clinical Summary ---
Author Organization [address] Address [address] [place] [phone] Care Team Providers Care Biometrics Specialist Name Role Phone Dawson Natarajan MD Primary Care Provider [phone] Allergies No known active allergies Medications promethazine (PHENERGAN) 12.5 mg tablet Take 1 tablet (12.5 mg total) by mouth every 4 (four) hours as needed for nausea. Active norethindrone (AYGESTIN) 5 mg tablet Take 3 tablets (15 mg total) by mouth daily. Active multivitamin capsule multivitamin daily Active oxyCODONE (ROXICODONE) 5 mg Immediate Release tablet Take 1 tablet (5 mg total) by mouth every 8 (eight) hours as needed for pain. 12 tablet 3 Active Active Problems Problem Noted Date Diagnosed Date Epigastric abdominal pain 12/12/2022 Social History Tobacco Use Types Packs/Day Years Used Date Smoking Tobacco: Never Smokeless Tobacco: Never Tobacco Cessation:Counseling Given: Not Answered Alcohol Use Standard Drinks/Week Comments Not Currently [...] Sign Reading Time Taken Comments Blood Pressure 142/96 12/25/2022 3:00 PM EST Pulse 74 12/25/2022 3:15 PM EST Temperature 36.6 C (97.8 F) 12/25/2022 11:49 AM EST Respiratory Rate 11 12/25/2022 3:15 PM EST Oxygen Saturation 96% 12/25/2022 3:15 PM EST Inhaled Oxygen Concentration - - Weight 139.1 kg (306 lb 10.6 oz) 2022 11:49 AM EST Height 170.2 cm (5' 7 ) 12/12/2022 10:3 8 PM EST Body Mass Index 48.03 12/12/2022 10:38 PM EST Plan of Treatment Health Maintenance Due Date Last Done Comments IPV Vaccines (4 of 4 - 4-dose series) 2002 11/21/1999, 04/08/1999, 02/04/1999 Varicella Vaccines (2 of 2 - 2-dose childhood series) 2002 05/08/2000 DTaP/TDaP Vaccines (5 - Tdap) 2005 02/02/2000, 06/10/1999, 04/08/1999, Additional history exists HIV screening 2011 HPV vaccine series (1 - 3-dose series) 2013 Tetanus adult (Td q 10,TDAP once) 2018 Cervical cancer screening 2019 Influenza vaccine 06/26/2025 11/14/2021, 01/20/2019 Covid-19 vaccine series ( season) 2025 04/02/2021, 03/12/2021 RSV Immunization (1 - 1-dose 75+ series) 2073 Hepatitis B vaccine series Completed 09/16, 1998, 1998 MMR Vaccines Completed 11/21/1999 HIB Vaccines Completed 02/02/2000, 05/26, 04/08/1999, Additional history exists Hepatitis C screening Completed 12/11/2022 Hepatitis A Vaccines Aged Out No long er eligible based on patient's age to complete this topic Meningococcal B Vaccine Aged Out No l onger eligible based on patient's age to complete this topic Meningococcal Vaccine Aged Out No logan marisol eligible based on patient's age to complete this topic Pneumococcal Vaccine (2 - 49 years) Aged Out No longer eligible based on patient's age to complete this topic Rotavirus Vaccines Aged Out No longer eligible based on patient's age to complete this topic Medical Devices Implanted Type Area Needleworker Device Identifier Shelf Expiration Date Model / Serial / Lot Stent Lua Pancreatic Flexi 5fx3cm Sngl Pigtail W/Flange - [id number] Implanted:Qty: 1 on 12/25/2022 by Devi Hebert MD at [facility] [address] Implant Pancreas [facility] [id number] 04/26/2026 6551 / / [id number] Stent Graft Viabil Biliary Endoprosthesis 8x4 200cm No Holes - [id number] Implanted:Qty: 1 on 12/25/2022 by Devi Hebert MD at [facility] [address] Implant Pancreas [employer] [id number] 04/18/2024 VN0 [id number] 0 / [id number] / [id number] Procedures Procedure Name Priority Date/Time Associated Diagnosis Comments HEPATITIS C AB WITH REFLEX TO HCV PCR Routine 12/11/2022 10:41 PM EST from Last 3 Months or Most Recently Relevant to Health Maintenance Results * Hepatitis C Ab with reflex to HCV PCR (12/11/2022 10:41 PM EST) Hepatitis C Antibody Negative Negative 12/12/2022 10:17 AM EST [facility] Comment:A negative result do es not exclude HCV infection, since antibodies are not detectable for 4-8 weeks after initial infection, or may not develop in compromised hosts. In high-risk individuals, repeat antibody testing in 2 months and/or HCV RNA PCR should be considered. Blood Venipuncture / Unknown 12/11/2022 10:41 PM EST 12/11/2022 10:55 PM EST Andre Morales MD LAB BLOOD ORDERABLES Final R esult [facility] [address] [place] [id number], [facility] [phone] from Last 3 Months or Most Recently Relevant to Health Maintenance Advance Directives * Full ACLS (Latest Code Status on File) Date Activated Date Inactivated Comments 12/12/2022 6:22 PM 12/16/2022 9:00 PM Question Answer Comments With Whom was the Code Status Discussed? Patient Care Teams Biometrics Specialist Relationship Specialty Start Date End Date Dawson Natarajan MD [address] [place] [address] [address] [place] [phone] PCP - General Internal Medicine 12/22/22
--- OUTSIDE RECORDS SUMMARY | 2025-08-22 15:18 | XMS_ITS | Patient Health Record ---
Author Organization [facility], Address [address] [place] [address] Support Name Relationship Address Phone Naif Kearns Guarantor Unknown [phone] Allergies No Known Allergies Reason For Referral No Information Medications Medication SIG (Take, Route, Frequency, Duration) Notes Start Date End Date Status Norethindrone Active Albuterol Sulfate HFA 108 (90 Base) MCG/ACT 2 puffs as needed Inhalation every 4-6 hrs prn cough/sob; Duration: 30 days 01/03/2024 Active Social History Sex Assigned At : Social History Observation Description Sex Assigned At Female Problems Problem Type SNOMED Code ICD Code Onset Dates Problem Status W/U Status Risk Notes Problem Exposure to communicable disease (653380784) Contact with and (suspected) exposure to other viral communicable diseases (Z20.828) Active confirmed Problem Cough (finding) (44234898) Cough, unspecified (R05.9) Active confirmed Problem Asthma (831013528) Asthma (J45.909) Active confirmed Plan Of Treatment No Information Insurance Providers Payer Name Payer Address Payer Phone Subscriber Number Group Number Insured Name Patient Relationship to Insured Coverage Start Date Coverage End Date [facility] [address] [place] [address] [id number] Naif Kearns Natural Child - Insured has Financial Responsibility Medical (General) History Medical History History ICD Code kidney disease renal cell CARCINOMA 2012 endometriosis Surgical History Surgery Date(Month/Year) LEFT KIDNEY - TUMOR REMOVAL GASTRIC SLEEVE gallbladder
--- OUTSIDE RECORDS SUMMARY | 2025-08-22 15:18 | XMS_ITS | Clinical Summary ---
Author Organization [facility] Address [address] [place] [address] Care Team Providers Care Mortgage Clerk Name Role Phone Dawson Natarajan MD Primary Care Provider [phone] Allergies No known active allergies Medications norethindrone (AYGESTIN) 5 MG tablet Take 3 tablets (15 mg total) by mouth nightly. Three time Active Multiple Vitamin (MULTIVITAMINS PO) Take 1 tablet by mouth daily. Active MELATONIN PO Take 5 mg by mouth nightly. Active traMADol (ULTRAM) 50 MG tabletIndications: Flank pain Take 1 tablet (50 mg total) by mouth 4 times daily (every 6 hours) as needed for severe pain. 8 tablet 01/07/20 25 Active HYDROcodone-acetam inophen (NORCO) 5-325 mg per tablet Take 1 tablet by mouth 4 times daily (every 6 hours) as needed for severe pain (pain). Max Daily Amount: 4 tablets 12 tablet 03/18/20 25 Active dicyclomine (BENTYL) 10 MG capsule Take 1 capsule (10 mg total) by mouth 4 (four) times a day. 20 capsule 04/11/20 25 Active proMETHAZINE (PHENERGAN) 25 MG suppository Insert 1 suppository (25 mg total) into the rectum 4 times daily (every 6 hours) as needed for nausea or vomiting. 6 suppository 04/13/20 25 Active lidocaine (LIDODERM) 5 % patch Place 1 patch on the skin daily. Apply patch and leave on for 12 hours then remove. Patch may remain on skin for 12 hours per day. 30 patch 04/24/20 25 Active oxyCODONE (ROXICODONE) 5 MG immediate release tablet Take 1-2 tablets (5-10 mg total) by mouth Every 4 (four) to 6 (six) hours as needed for severe pain. Max Daily Amount: 60 mg 6 tablet 05/03/20 25 Active ibuprofen (MOTRIN) 600 MG tablet Take 1 tablet (600 mg total) by mouth 3 (three) times a day as needed for mild pain (pain). 20 tablet 05/04/20 25 Active cyclobenzaprine (FLEXERIL) 10 MG tablet Take 1 tablet (10 mg total) by mouth 3 times daily (every 8 hours) as needed for muscle spasms. 9 tablet 05/04/20 25 Active methocarbamol (ROBAXIN) 750 MG tablet Take 1 tablet (750 mg total) by mouth 4 times daily (every 6 hours) as needed for muscle spasms. 30 tablet 05/17/20 25 Active ondansetron (ZOFRAN-ODT) 4 MG disintegrating tablet Take 1 tablet (4 mg total) by mouth 3 times daily (every 8 hours) as needed for nausea or vomiting. Place tablet on tongue to dissolve. 10 tablet 07/18/20 25 Active Active Problems Problem Noted Date Diagnosed Date Flank pain 01/05/2025 Resolved Problems Problem Noted Date Diagnosed Date Resolved Date UTI (urinary tract infection) 01/07/2025 02/09/2025 Encounters Date Type Department Care Team Description 07/18/2025 1:00 PM EDT Ancillary Procedure [facility] Emergency Department [address] [place] [address] [phone] Raymundo Velazquez APRN 07/18/2025 12:41 PM EDT - 07/18/2025 2:54 PM EDT Emergency [facility] Emergency Department [address] [place] [address] [phone] Alejo Green DO Fall, initial encounter (Primary Dx); Contusion of abdominal wall, initial encounter; Pain of left clavicle Discharge Disposition: Home or Self Care 07/18/2025 Travel 07/04/2025 3:35 PM EDT - 07/04/2025 6:46 PM EDT Emergency [facility] Emergency Department [address] [place] [address] [phone] Flank pain (Primary Dx) Discharge Disposition: Home or Self Care 07/04/2025 Travel from Last 3 Months Immunizations Immunization Administration Dates Next Due Tdap 03/18/2025 Family History Medical History Relation Name Comments No Known Problems Father No Known Problems Mother Relation Name Status Comments Father Mother Social History Tobacco Use Types Packs/Day Years Used Date Smoking Tobacco: Never Smokeless Tobacco: Never Tobacco Cessation:Counseling Given: Not Answered Alcohol Use Standard Drinks/Week Comments Not Currently 0 (1 standard drink = 0.6 oz pur e alcohol) [facility] Utilities Answer Date Recorded In the past 12 months has th e electric, gas, oil, or water company threatened [...] any clubs o r organizations such as mu-ism groups, unions, fraternal or athletic groups, or [...] any time in the past 12 m onths, were you homeless or living in a senior care (including now)? No 01/07/2025 Comments No Sex and Gender Information Value Date Recorded Sex Assigned at Female 05/12/2023 3:50 PM EDT Legal Sex Female 3:02 PM EDT Gender Identity Female 05/12/2023 3:50 PM EDT Sexual Orientation Choose not to disclose 2022 9:40 AM EDT Last Filed Vital Signs Vital Sign Reading Time Taken Comments Blood Pressure 114/61 07/18/2025 2:24 PM EDT Pulse 92 07/18/2025 2:24 PM EDT Temperature 37.1 C (98.7 F) 07/18/2025 2:24 PM EDT Respiratory Rate 17 07/18/2025 2:24 PM EDT Oxygen Saturation 100% 07/18/2025 2:24 PM EDT Inhaled Oxygen Concentration - - Weight 95.3 kg (210 lb) 07/18/2025 12:43 PM EDT Height 170.2 cm (5' 7 ) 07/18/2025 12:43 PM EDT Body Mass Index 32.89 07/18/2025 12:43 PM EDT Plan of Treatment Health Maintenance Due Date Last Done Comments Hepatitis C Virus Screening 1998 HPV Vaccines (1 - 3-dose series) 2013 Hepatitis B Vaccines (1 of 3 - 19+ 3-dose series) 2017 Pap Smear (Ages 21-65) 2019 Influenza Vaccine 06/26/2025 10/11/2023, , 11/14/2021, Additional history exists COVID-19 Vaccine (3 - 2024- season) 2025 04/02/2021, 03/12/2021 DTaP/Tdap/Td Vaccines (2 - Td or Tdap) 03/18/2035 03/18/2025 HIV Screening Completed 07/13/2018 Chronic Controlled Substance User PDMP Review Discontinued 04/13/2025, 02/19/2024 Pneumococcal Vaccine: Pediatric (0-5 Years) and At-Risk Patients (6 to 49 Years) Aged Out No longer eligible based on patient's age to complete this topic Procedures Procedure Name Priority Date/Time Associated Diagnosis Comments XR CLAVICLE-LEFT STAT 07/18/2025 2:[address] ABDOMEN+PELVIS W/CONTRAST STAT 07/18/2025 2:08 PM EDT POCT , URINE (CHARGE) Routine 07/18/2025 1:50 PM EDT MICROSCOPIC URINALYSIS STAT 1:36 PM EDT URINALYSIS WITH REFLEX TO MICROSCOPIC AND CULTURE STAT 07/18/2025 1:36 PM EDT ECG 12-LEAD STAT 07/18/2025 1:21 PM EDT LEARNER FAST EXAM POC ULTRASOUND Routine 07/18/2025 1:10 PM EDT MAGNESIUM STAT 07/18/2025 12:54 PM EDT COMPREHENSIVE METABOLIC PANEL STAT 07/18/2025 12:54 PM EDT COMPLETE BLOOD COUNT, WITH DIFFERENTIAL STAT 07/18/2025 12:54 PM EDT US RENAL STAT 07/04/2025 5:40 PM EDT BETA-HCG, QUALITATIVE, URINE STAT 07/04/2025 4:25 PM EDT URINALYSIS WITH REFLEX TO MICROSCOPIC AND CULTURE STAT 07/04/2025 4:25 PM EDT COMPREHENSIVE METABOLIC PANEL STAT 07/04/2025 4:20 PM EDT COMPLETE BLOOD COUNT, WITH DIFFERENTIAL STAT 07/04/2025 4:20 PM EDT from Last 3 Months Results * XR Clavicle-Left (07/18/2025 2:13 PM EDT) Anatomical Region Laterality Modality Shoulder Left Computed Radiogr aphy 07/18/2025 2:30 PM EDT Impressions 07/18/2025 2:31 PM EDT Impression: No evidence for fracture. Narrative 07/18/2025 2:31 PM EDT XR CLAVICLE-LEFT: 07/18/2025 2:01 PM CLINICAL HISTORY: fall with left clavicular tenderness Comparisons: Left shoulder radiograph 04/24/2025 Technique: Frontal views. 2 views. Findings: There is no evidence for fracture. The acromioclavicular joint appears intact. The glenohumeral joint appears normal Procedure Note Neil Fabian MD - 07/18/2025 XR CLAVICLE-LEFT: 07/18/2025 2:01 PM CLINICAL HISTORY: fall with left clavicular tenderness Comparisons: Left shoulder radiograph 04/24/2025 Technique: Frontal views. 2 views. Findings: There is no evidence for fracture. The acromioclavicular joint appearsintact. The glenohumeral joint appears normal IMPRESSION: Impression: No evidence for fracture. Raymundo Velazquez APRN IMG DIAGNOSTIC IMAGING ORDER SHENG Final Result * CT Abdomen+pelvis w/contrast (07/18/2025 2:08 PM EDT) Anatomical Region Laterality Modality Abdomen, Pelvis Computed Tomogra phy 07/18/2025 2:31 PM EDT Impressions 07/18/2025 2:34 PM EDT Impression: No acute intra-abdominal process identified. Narrative 07/18/2025 2:[address] ABDOMEN+PELVIS W/CONTRAST: 07/18/2025 1:53 PM CLINICAL HISTORY: left flank pain after fall Comparison: CT abdomen pelvis 05/03/2025 Technique: CT axial images of the abdomen and pelvis were performed subsequent to the intravenous administration of contrast. Oral contrast was not administered. Iterative reconstruction technique was used to reduce radiation exposure. Contrast: 100 cc of Omnipaque 350 was administered intravenously. Findings: There is a small hiatal hernia. The gallbladder surgically absent. The spleen, pancreas and adrenal glands appear normal. The left kidney is surgically absent. The right kidney appears normal. There is no CT evidence for retroperitoneal lymphadenopathy. There is no abdominal ascites. The small and large bowel appear normal caliber. A normal-appearing appendix is noted. The urinary bladder appears unremarkable. There is no CT evidence for pelvic or inguinal lymphadenopathy. There is no free pelvic fluid. There are mild degenerative changes within the lumbar spine. No acute fracture is noted. Procedure Note Neil Fabian MD - 07/18/2025 CT ABDOMEN+PELVIS W/CONTRAST: 07/18/2025 1:53 PM CLINICAL HISTORY: left flank pain after fall Comparison: CT abdomen pelvis 05/03/2025 Technique: CT axial images of the abdomen and pelvis were performedsubsequent to the intravenous administration of contrast. Oral contrastwas not administered. Iterative reconstruction technique was used toreduce radiation exposure. Contrast: 100 cc of Omnipaque 350 was administered intravenously. Findings: There is a small hiatal hernia. The gallbladder surgically absent. The spleen, pancreas and adrenal glandsappear normal. The left kidney is surgically absent. The right kidney appears normal. There is no CT evidence for retroperitoneal lymphadenopathy. There is noabdominal ascites. The small and large bowel appear normal caliber. A normal-appearingappendix is noted. The urinary bladder appears unremarkable. There is no CT evidence forpelvic or inguinal lymphadenopathy. There is no free pelvic fluid. There are mild degenerative changes within the lumbar spine. No acutefracture is noted. IMPRESSION: Impression: No acute intra-abdominal process identified. Raymundo Chancehoumarixa HICKSN IMG CT ORDERABLES Final Resu lt * POCT , Urine (07/18/2025 1:50 PM EDT) Preg Test, Ur Negative Lot Number [id number] [place] 07/18/2025 1:50 PM EDT [facility] POINT OF CARE TEST ORDERABLE S Final Result * (ABNORMAL) Urinalysis with Reflex to Microscopic and Culture (07/18/2025 1:36 PM EDT) Only the most recent of2 resultswithin the time period is included. [facility] Color Yellow 07/18/2025 1:59 PM EDT [facility] Clarity Clear 07/18/2025 1:59 PM EDT [facility] Specific [place] 1.015 1.005 - 1.030 07/18/2025 1:59 PM EDT [facility] pH 8.0 5.0 - 8.0 07/18/2025 1:59 PM EDT [facility] Leukocyte Esterase Small(A) Negative 07/18/2025 1:59 PM EDT [facility] Nitrite Negative Negative 07/18/2025 1:59 PM EDT [facility] Protein Negative Negative mg/dL 07/18/2025 1:59 PM EDT [facility] Glucose Negative Negative mg/dL 07/18/2025 1:59 PM EDT [facility] Ketones Negative Negative mg/dL 07/18/2025 1:59 PM EDT [facility] Blood Negative Negative 07/18/2025 1:59 PM EDT [facility] Bilirubin Negative Negative 07/18/2025 1:59 PM EDT [facility] Urine Urine specimen / Unknown 07/18/2025 1:36 PM EDT 07/18/2025 1:56 PM EDT Raymundo Chancehoumarixa BAXTER URINE ORDERABLES Final Resul t [facility] [address] [place] [address], [place] * (ABNORMAL) Microscopic Urinalysis (07/18/2025 1:36 PM EDT) WBC 4 0 - 4 per hpf 07/18/2025 2:11 PM EDT [facility] RBC 0 0 - 4 per hpf 07/18/2025 2:11 PM EDT [facility] Bacteria Present(A) Absent 07/18/2025 2:11 PM EDT [facility] Squamous Epithelial Cells 2 0 - 4 PER HPF 07/18/2025 2:11 PM EDT [facility] Crystals Absent 07/18/2025 2:11 PM EDT [facility] Urine specimen / Unknown 07/18/2025 1:36 PM EDT 07/18/2025 1:56 PM EDT Raymundo Velazquez MAJOR GIFTS OFFICER URINE ORDERABLES Final Resul t [facility] [address] [place] [address], [place] * ECG 12 lead (07/18/2025 1:21 PM EDT) Ventricular rate 77 BPM EKG [facility] Atrial rate 77 BPM [facility] P[facility]R interval 142 ms [facility] QRS duration 64 ms [facility] Q-T interval 318 ms [facility] QTC calculation (Bazett) 359 ms EKG [facility] P axis 43 degrees EKG [facility] R axis 44 degrees EKG [facility] T axis 15 degrees [facility]KG [facility] 07/18/2025 1:21 PM EDT Narrative EKG [facility] - 07/18/2025 4:56 PM EDT Normal sinus rhythm with sinus arrhythmia Normal ECG When compared with ECG of 11-Apr-2025 13:09, No significant change was found Confirmed by DO Green Amarnath ([id number]) on 07/18/2025 4:55:58 PM Procedure Note Alejo Green DO - 07/18/2025 Normal sinus rhythm with sinus arrhythmia Normal ECG When compared with ECG of 11-Apr-2025 13:09, No significant change was found Confirmed by DO Green Amarnath ([id number]) on 07/18/2025 4:55:58 PM us Raymundo Velazquez APRN ECG ORDERABLES Final Result EKG [facility] * LEARNER FAST EXAM POC ULTRASOUND (07/18/2025 1:10 PM EDT) Anatomical Region Laterality Modality Ultrasound Narrative 07/18/2025 1:10 PM EDT Status post left nephrectomy, no free fluid in Morison's pouch, no free fluid around bladder, plump IVC, no pericardial effusion us Raymundo Velazquez APRN IMG US ORDERABLES Final Resu lt * (ABNORMAL) Complete Blood Count, with Differential (07/18/2025 12:54 PM EDT) Only the most recent of2 resultswithin the time period is included. White Blood Cell Count 5.6 4.0 - 11.0 Thou/uL 07/18/2025 1:13 PM EDT [facility] Platelet Count 315 150 - 450 Thou/uL 07/18/2025 1:13 PM EDT [facility] Hemoglobin 13.0 11.7 - 15.7 g/dL 07/18/2025 1:13 PM EDT [facility] Hematocrit 42.1 35.0 - 47.0 % 07/18/2025 1:13 PM EDT [facility] Red Blood Cell Count 4.39 4.00 - 5.40 Mil/uL 07/18/2025 1:13 PM EDT [facility] MCV 96 80 - 100 fL 07/18/2025 1:13 PM EDT [facility] MCH 29.6 26.0 - 34.0 pg [facility]25 [facility] 30.9 30.0 - 36.0 g/dL 07/18/2025 1:13 PM EDT [facility] RDW 12.8 11.5 - 14.5 % 07/18/2025 1:13 PM EDT [facility] MPV 8.7 7.5 - 12.5 fL 07/18/2025 1:13 PM EDT [facility] Neutrophils Auto 65.9 % 07/18/20 1:13 PM EDT [facility] Immature Granulocytes 0.2 % 07/18/2025 1:13 PM EDT [facility] Lymphocytes Auto 24.6 % 07/18/20 1:13 PM EDT [facility] Monocytes Auto 7.5 % 07/18/2025 1:13 PM EDT [facility] Eosinophils Auto 1.3 % 07/18/20 1:13 PM EDT [facility] Basophils Auto 0.5 % 07/18/2025 1:13 PM EDT [facility] Abs Neutrophils Auto 3.67 2.00 - 7.50 Thou/uL 07/18/2025 1:13 PM EDT [facility] Abs Immature Granulocytes 0.01 0.00 - 0.10 Thou/uL 07/18/2025 1:13 PM EDT [facility] Abs Lymphocytes Auto 1.37(L) 1.50 - 4.50 Thou/uL 07/18/2025 1:13 PM EDT [facility] Abs Monocytes Auto 0.42 0.20 - 1.50 Thou/uL 07/18/2025 1:13 PM EDT [facility] Abs Eosinophils Auto 0.07 0.00 - 0.70 Thou/uL 07/18/2025 1:13 PM EDT [facility] Abs Basophils Auto 0.03 0.00 - 0.20 Thou/uL 07/18/2025 1:13 PM EDT [facility] Blood Blood specimen / Unknown 07/18/2025 12:54 PM EDT 07/18/2025 1:11 PM EDT us Raymundo Velazquez APRN LAB BLOOD ORDERABLES Final R esult [facility] [address] [place] [address], [place] * Magnesium (07/18/2025 12:54 PM EDT) Pathologist [facility] Magnesium 2.1 1.6 - 2.7 mg/dL 07/18/2025 1:32 PM EDT [facility] Blood Blood specimen / Unknown 07/18/2025 12:54 PM EDT 07/18/2025 1:11 PM EDT Raymundo Velazquez APRN LAB BLOOD ORDERABLES Final R esult [facility] [address] [place] [address], * (ABNORMAL) Comprehensive Metabolic Panel (07/18/2025 12:54 PM EDT) Only the most recent of2 resultswithin the time period is included. [facility] Glucose 87 65 - 99 mg/dL 07/18/2025 1:32 PM EDT [facility] Comment:Fasting: <100 mg/dL, Non-Fasting: <200 mg/dL (ADA 2005) Blood Urea Nitrogen (BUN) 8 8 - 21 mg/dL 07/18/2025 1:32 PM EDT [facility] Creatinine 0.9 0.4 - 1.1 mg/dL 07/18/2025 1:32 PM EDT [facility] eGFR >90 >59 07/18/2025 1:32 PM EDT [facility] Comment:CKD-EPI (2020) in mL /min/1.73 sq meters. Sodium 138 136 - 145 mmol/L 07/18/2025 1:32 PM EDT [facility] Potassium 4.4 3.4 - 5.3 mmol/L 07/18/2025 1:32 PM EDT [facility] Chloride 105 98 - 107 mmol/L 07/18/2025 1:32 PM EDT [facility] CO2 21(L) 22 - 33 mmol/L 07/18/2025 1:32 PM EDT [facility] Calcium 9.3 8.7 - 10.5 mg/dL 07/18/2025 1:32 PM EDT [facility] Alkaline Phosphatase 84 32 - 122 U/L 07/18/2025 1:32 PM EDT [facility] Aspartate Aminotrans (AST) 31 10 - 50 U/L 07/18/2025 1:32 PM EDT [facility] Alanine Aminotrans (ALT) 37 10 - 50 U/L 07/18/2025 1:32 PM EDT [facility] Bilirubin, Total 0.8 0.2 - 1.0 mg/dL 07/18/2025 1:32 PM EDT [facility] Protein, Total 7.4 6.3 - 8.3 g/dL 07/18/2025 1:32 PM EDT [facility] Albumin 4.2 3.5 - 5.0 g/dL 07/18/2025 1:32 PM EDT [facility] BUN/Creatinine Ratio 9(L) 10.0 - 25.0 Ratio 07/18/2025 1:32 PM EDT [facility] Globulin 3.2 1.5 - 3.9 g/dL 07/18/2025 1:32 PM EDT [facility] Albumin/Globulin Ratio 1.3 1.0 - 3.0 Ratio 07/18/2025 1:32 PM EDT [facility] Anion Gap 12 7 - 17 07/18/2025 1:32 PM EDT [facility] Blood Blood specimen / Unknown 07/18/2025 12:54 PM EDT 07/18/2025 1:11 PM EDT us Raymundo Velazquez VEE LAB BLOOD ORDERABLES Final R esult Performing Organization Address City/State/[facility] Co de Phone Number [facility] [address] [place] [address], [place] * US Renal (07/04/2025 5:40 PM EDT) Anatomical Region Laterality Modality Abdomen Ultrasound 07/04/2025 5:46 PM EDT Impressions 07/04/2025 5:47 PM EDT Unremarkable renal ultrasound. Narrative 07/04/2025 5:47 PM EDT STUDY: Renal ultrasound. INDICATION: Right flank pain COMPARISON: 05/03/2025 TECHNIQUE: Estrada scale and color Doppler images were obtained for interpretation. FINDINGS: The right kidney is 12.7 cm in length and demonstrates normal echotexture. There is no evidence of hydronephrosis, focal lesions or calculi. The left kidney is not identified. The bladder is moderately distended. No bladder wall thickening, focal lesions or internal debris are appreciated. Bilateral ureteral jets are seen. No dilatation of the distal ureters is identified. Procedure Note Gorge Felder MD - 07/04/2025 STUDY: Renal ultrasound. INDICATION: Right flank pain COMPARISON: 05/03/2025 TECHNIQUE: Estrada scale and color Doppler images were obtained forinterpretation. FINDINGS: The right kidney is 12.7 cm in length and demonstrates normal echotexture.There is no evidence of hydronephrosis, focal lesions or calculi. The left kidney is not identified. The bladder is moderately distended. No bladder wall thickening, focallesions or internal debris are appreciated. Bilateral ureteral jets areseen. No dilatation of the distal ureters is identified. IMPRESSION: Unremarkable renal ultrasound. us Antony CABALLERO IMG US ORDERABLES Final Result * Beta-hCG, Qualitative, Urine (07/04/2025 4:25 PM EDT) Beta-hCG, Qualitative, Urine Negative Negative 07/04/2025 4:40 PM EDT [facility] Urine Urine specimen / Unknown 07/04/2025 4:25 PM EDT 07/04/2025 4:30 PM EDT us Antony CABALLERO URINE ORDERABLES Final Result Performing Organization Address City/State/[facility] Co de Phone Number [address] from Last 3 Months Insurance [facility] [employer] IN[employer]IDUAL EXCHANGE PPO [facility] [employer] Advance Directives * Full Code (Latest Code Status on File) Date Activated Date Inactivated Comments 01/05/2025 7:25 PM 03/02/2025 3:01 PM Care Teams Mortgage Clerk Relationship Specialty Start Date End Date Dawson Natarajan MD [address] [place] [address] [id number] PCP - General Internal Medicine 04/12/22
[2025-08-22 17:46] LABS: Appearance Urine Clear; Glucose Urine UA Negative (Negative); PH 7.0 (5.0-9.0); Specific Gravity - Urine 1.020 (1.005-1.025); UMIC TRIGGER UACC YES
[2025-08-22 18:25] LABS: UACC Culture Trigger YES
[2025-08-22 18:53] LABS: UPreg QC Valid YES
[2025-08-22] MEDS: iohexoL 350 MG/ML 100 ML INFUS..BTL IV (19:14)
[2025-08-22 19:33] VITALS: BP 112/59; PULSE 89; RESP 20; TEMP 36.8; O2SAT 100
[2025-08-22 20:11] VITALS: BP 112/59; PULSE 89; RESP 20; TEMP 36.8; O2SAT 100
== END 2025-08-22 20:15 | disposition home or self-care (01) ==
PROVIDERS: Registered Nurse Emergency; Emergency Provider Emergency Medicine
DX: M25.571 Pain in right ankle and joints of right foot (principal); R10.9 Unspecified abdominal pain; M54.9 Dorsalgia, unspecified; R51.9 Headache, unspecified; Z91.81 History of falling
CPT/HCPCS: 70450; 71101; 72072; 72100; 72125; 73610; 73630; 74177; 81001; 81025; 87086; 96361; 96374; 96375; 99283; 99285; J1885; J2270; Q9967